=== PATIENT | female | born 1960 | race Caucasian/White ===

== ENCOUNTER 2019-08-04 19:39 | Inpatient (IN) | payer MEDICAID ==
[2019-08-04] MEDS ORDERED: Ondansetron 4 MG/2 ML SDV IVPUSH ONE (20:33)
[2019-08-04] MEDS ORDERED: Sodium Chloride 0.9% 1,000 ML IV SCH (20:45)
--- NOTE | 2019-08-04 20:52 | EDM.PDOC ---
ED HPI GENERAL MEDICAL PROBLEM - General Chief Complaint: Abdominal Pain Stated Complaint: LOWER STOMACH PAIN Time Seen by Provider: 08/04/19 20:17 Source of Information: Reports: Patient, RN Notes Reviewed History Limitations: Reports: No Limitations - History of Present Illness INITIAL COMMENTS - FREE TEXT/NARRATIVE: Patient is a 58-year-old female who presents to the ED for the evaluation of lower abdominal pain. She does state that this is present in both the right and left abdomen, but is worse on the left side. She does state that she has had looser stools than normal for around 4 days, multiple episodes per day. She does having some nausea as well today. She not complaining of any fevers or chills. Patient states she does have a history of IBS, but this was diagnosed in the on her symptoms alone. Patient states that she normally has bowel issues however again the stools have been looser than her normal. She states that the pain she is experiencing is a little bit different from her normal abdomen pain as well. She has been using some heat packs to the area and this is provided little relief, and she does have a prescription for dicyclomine as she did take 1 tablet of this today and it does seem to help dull the pain. She states she feels bloated as well. She states she has only had C-sections for abdominal surgeries, so still retains her appendix. She states that she is having urinary frequency, but no dysuria or urgency. Patient does not have a primary care doctor, and states she does not seek medical care regularly. 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 Therapy Left Lower Abdominal Pain Score (Numeric/FACES): 5 - Related Data Allergies Allergy/AdvReac Type Severity Reaction Status Date / Time erythromycin base Allergy Other Verified 08/04/19 20:12 Home Meds: Home Meds Dicyclomine [Bentyl] 20 mg PO ASDIRECTED 08/04/19 [History] Levothyroxine 20 mcg PO DAILY 08/04/19 [History] hydroCHLOROthiazide [Hydrochlorothiazide] 25 mg PO DAILY 08/04/19 [History] valACYclovir HCl [Valtrex] 500 mg PO ASDIRECTED PRN 08/04/19 [History] Past Medical History Cardiovascular History: Reports: Other (See Below) Other Cardiovascular History: edema Gastrointestinal History: Reports: Irritable Bowel Syndrome [employer]OR [employer] TRANSFORMATION History: Reports: - Past Surgical History Female Surgical History: Reports: Section Social & Family History - Tobacco Use Smoking Status *Q: Never Smoker - Caffeine Use Caffeine Use: Reports: Soda - Recreational Drug Use Recreational Drug Use: No ED ROS GENERAL - Review of Systems Review Of Systems: See Below Constitutional: Denies: Fever, Chills Respiratory: Denies: Shortness of Breath Cardiovascular: Denies: Chest Pain GI/Abdominal: Reports: Abdominal Pain (bilateral lower, worse on left), Nausea. Denies: Black Stool, Bloody Stool, Diarrhea, Vomiting : Reports: Frequency. Denies: Dysuria, Flank Pain, Urgency Musculoskeletal: Denies: Back Pain ED EXAM, GI/ABD - Physical Exam Exam: See Below Exam Limited By: No Limitations General Appearance: Alert, WD/WN, No Apparent Distress Eyes: Bilateral: Normal Appearance Ears: Normal External Exam Throat/Mouth: Normal Inspection, Normal Lips, Normal Teeth, Normal Gums, Normal Oropharynx, Normal Voice, No Airway Compromise Head: Atraumatic, Normocephalic Neck: Normal Inspection Respiratory/Chest: No Respiratory Distress, Lungs Clear, Normal Breath Sounds, No Accessory Muscle Use, Chest Non-Tender Cardiovascular: Normal Peripheral Pulses, Regular Rate, Rhythm, No Murmur GI/Abdominal Exam: Soft, No Distention, No Mass, Tender (generalized, but worse in lower abd. when palpating the Right lower abd, she states that this sends shooting pains throghout her abdomen, she is exquisitely tender on her left lower abd also) Extremities: Normal Inspection, Normal Capillary Refill Neurological: Alert, Oriented, Normal Cognition, No Motor/Sensory Deficits Psychiatric: Normal Affect, Normal Mood Skin Exam: Warm, Dry, Intact, Normal Color, No Rash Course - Orders/Labs/Meds Orders: Active Orders 24 hr Category Date Time Status Abdomen Pelvis w Cont [CT] Stat Exams 08/04/19 20:33 Taken Levofloxacin/Dextrose 5%-Water [Levaquin in D5W 750 MG/ Med 08/04/19 22:46 Active 150 ML] 750 mg Premix Bag 1 bag IV ONETIME Sodium Chloride 0.9% [Normal Saline] 1,000 ml Med 08/04/19 20:45 Active IV ASDIRECTED metroNIDAZOLE/Normal Saline [Flagyl 500 MG in NS 100 ML Med 08/04/19 22:51 Active ] 500 mg Premix Bag 1 bag IV ONETIME Medication Orders Sodium Chloride (Normal Saline) 1,000 mls @ 999 mls/hr IV ASDIRECTED STEF Last Admin: 08/04/19 21:08 Dose: 999 mls/hr Levofloxacin/Dextrose 750 mg/ (Premix) 150 mls @ 100 mls/hr IV ONETIME ONE Stop: 08/05/19 00:15 Metronidazole 500 mg/ Premix 100 mls @ 100 mls/hr IV ONETIME ONE Stop: 08/04/19 23:50 Last Admin: 08/04/19 23:04 Dose: 100 mls/hr Labs: Laboratory Tests 08/04/19 08/04/19 08/04/19 Range/Units 20:19 20:59 20:59 WBC 10.49 H (3.98-10.04) K/mm3 RBC 4.76 (3.98-5.22) M/mm3 Hgb 14.3 (11.2-15.7) gm/dl Hct 43.0 (34.1-44.9) % MCV 90.3 (79.4-94.8) fl MCH 30.0 (25.6-32.2) pg MCHC 33.3 (32.2-35.5) g/dl RDW Std Deviation 44.0 (36.4-46.3) fL Plt Count 318 (182-369) K/mm3 MPV 9.3 L (9.4-12.3) fl Neutrophils % (Manual) 80 H (40-60) % Band Neutrophils % 0 (0-10) % Lymphocytes % (Manual) 9 L (20-40) % Atypical Lymphs % 0 % Monocytes % (Manual) 10 (2-10) % Eosinophils % (Manual) 1 (0.7-5.8) % Basophils % (Manual) 0 L (0.1-1.2) Platelet Estimate Adequate RBC Morph Comment Normal Sodium 140 (136-145) mEq/L Potassium 3.6 (3.5-5.1) mEq/L Chloride 102 (98-107) mEq/L Carbon Dioxide 26 (21-32) mEq/L Anion Gap 15.6 H (5-15) BUN 11 (7-18) mg/dL Creatinine 1.0 (0.55-1.02) mg/dL Est Cr Clr Drug Dosing 51.96 mL/min Estimated GFR (MDRD) 57 (>60) mL/min BUN/Creatinine Ratio 11.0 L (14-18) Glucose 105 (74-106) mg/dL Calcium 9.5 (8.5-10.1) mg/dL Total Bilirubin 0.2 (0.2-1.0) mg/dL AST 15 (15-37) U/L ALT 24 (14-59) U/L Alkaline Phosphatase 92 (46-116) U/L C-Reactive Protein 1.1 H* (<1.0) mg/dL Total Protein 8.3 H (6.4-8.2) g/dl Albumin 4.4 (3.4-5.0) g/dl Globulin 3.9 gm/dL Albumin/Globulin Ratio 1.1 (1-2) Urine Color Yellow (Yellow) Urine Appearance Clear (Clear) Urine pH 5.5 (5.0-8.0) Ur Specific [place] 1.025 (1.005-1.030) Urine Protein Negative (Negative) Urine Glucose (UA) Negative (Negative) Urine Ketones Negative (Negative) Urine Occult Blood Negative (Negative) Urine Nitrite Negative (Negative) Urine Bilirubin Negative (Negative) Urine Urobilinogen 0.2 (0.2-1.0) Ur Leukocyte Esterase Negative (Negative) Urine RBC 0-5 (0-5) /hpf Urine WBC 0-5 (0-5) /hpf Ur Epithelial Cells 0-5 (0-5) /hpf Urine Bacteria Few (FEW) /hpf Urine Mucus Moderate H (FEW) /hpf Meds: Medications Generic Name Dose Route Start Last Admin Trade Name Freq PRN Reason Stop Dose Admin Sodium Chloride 1,000 mls @ 999 mls/hr 08/04/19 20:45 08/04/19 21:08 Normal Saline IV 999 mls/hr ASDIRECTED STEF Administration Levofloxacin/Dextrose 750 mg/ 150 mls @ 100 mls/hr 08/04/19 22:46 Premix IV 08/05/19 00:15 ONETIME ONE Metronidazole 500 mg/ Premix 100 mls @ 100 mls/hr 08/04/19 22:51 08/04/19 23: 04 IV 08/04/19 23:50 100 mls/hr ONETIME ONE Administration Discontinued Medications Generic Name Dose Route Start Last Admin Trade Name Freq PRN Reason Stop Dose Admin Hydromorphone HCl 0.5 mg 08/04/19 22:51 08/04/19 23:02 Dilaudid IVPUSH 08/04/19 22:52 0.5 mg ONETIME ONE Administration Ondansetron HCl 4 mg 08/04/19 20:33 08/04/19 21:08 Zofran IVPUSH 08/04/19 20:34 4 mg ONETIME ONE Administration - Re-Assessments/Exams Free Text/Narrative Re-Assessment/Exam: 08/04/19 20:52 Patient presents to the ED for the evaluation of bilateral lower abdominal pain. Did order IV to be placed with some IV fluids, 4 mg of Zofran, CBC CMP urinalysis and a CRP with an abdominal pelvis CT with oral and IV contrast for further evaluation. Due to the patient's pain and symptoms suspect a flare of her IBS versus diverticulitis at this time. Patient was not requesting anything for pain, she states she drove herself here. She states that if she feels enough pain that she thinks she needs something stronger than dicyclomine , she will find a ride to go home. 08/04/19 23:11 Patient's laboratory evaluation did come back her white blood cell count is mildly elevated with 80% neutrophils and no bands. Metabolically she is okay. CRP is mildly elevated 1.1. CT did demonstrate a short segment of colitis of the distal descending colon, that has an area that appears to be masslike, and radiologist is questioning colon cancer versus the short segment of colitis of the distal descending colon. Due to the patient's increased white count, and pain, will treat as diverticulitis patient has been given some IV antibiotics, some IV pain medications and IV fluids and will be admitted for management at this time. Dr. Yanes is aware, and he will talk to Dr. Mortensen in the morning for admission. Departure - Departure Time of Disposition: 23:13 Disposition: Admitted As Inpatient 68 Condition: Fair Clinical Impression: Diverticulitis large intestine Qualifiers: Diverticulitis bleeding: without bleeding Diverticulitis complication: without perforation or abscess Qualified Code(s): K57.32 - Diverticulitis of large intestine without perforation or abscess without bleeding - Discharge Information *PRESCRIPTION DRUG MONITORING PROGRAM REVIEWED*: No *COPY OF PRESCRIPTION DRUG MONITORING REPORT IN PATIENT TERRI: No Sepsis Event Note - Evaluation Sepsis Screening Result: No Definite Risk - Focused Exam Date Exam was Performed: 08/04/19 Time Exam was Performed: 23:33 - My Orders Last 24 Hours: My Active Orders 08/04/19 20:33 Abdomen Pelvis w Cont [CT] Stat 08/04/19 20:45 Sodium Chloride 0.9% [Normal Saline] 1,000 ml IV ASDIRECTED 08/04/19 22:46 Levofloxacin/Dextrose 5%-Water [Levaquin in D5W 750 MG/150 ML] 750 mg Premix Bag 1 bag IV ONETIME 08/04/19 22:51 metroNIDAZOLE/Normal Saline [Flagyl 500 MG in NS 100 ML] 500 mg Premix Bag 1 bag IV ONETIME - Assessment/Plan Last 24 Hours: My Active Orders 08/04/19 20:33 Abdomen Pelvis w Cont [CT] Stat 08/04/19 20:45 Sodium Chloride 0.9% [Normal Saline] 1,000 ml IV ASDIRECTED 08/04/19 22:46 Levofloxacin/Dextrose 5%-Water [Levaquin in D5W 750 MG/150 ML] 750 mg Premix Bag 1 bag IV ONETIME 08/04/19 22:51 metroNIDAZOLE/Normal Saline [Flagyl 500 MG in NS 100 ML] 500 mg Premix Bag 1 bag IV ONETIME
[2019-08-04] MEDS ORDERED: Levofloxacin/Dextrose 5%-Water 750 MG in Premix Bag 1 BAG IV ONE (22:46)
[2019-08-04] MEDS ORDERED: metroNIDAZOLE/Normal Saline 500 MG in Premix Bag 1 BAG IV ONE (22:51)
[2019-08-04] MEDS ORDERED: HYDROmorphone 0.5 MG/0.5 ML Syringe IVPUSH ONE (22:51)
[2019-08-05] MEDS ORDERED: Ondansetron 4 MG/2 ML SDV IVPUSH PRN (01:16)
[2019-08-05] MEDS ORDERED: HYDROmorphone 0.5 MG/0.5 ML Syringe IVPUSH PRN (01:17)
[2019-08-05] MEDS: Dextrose 5%-0.9% NaCl with KCl 1,000 ML IV SCH ×2 (01:39→19:55)
[2019-08-05] MEDS ORDERED: metroNIDAZOLE/Normal Saline 500 MG in Premix Bag 1 BAG IV SCH (07:00)
--- NOTE | 2019-08-05 07:13 | PCM.HP.2 ---
H&P History of Present Illness - General Date of Service: 08/05/19 Admit Problem/Dx: Admission Diagnosis/Problem Admission Diagnosis/Problem Diverticulitis Source of Information: Patient, Old Records, Provider, RN, RN Notes Reviewed History Limitations: Reports: No Limitations - History of Present Illness Initial Comments - Free Text/Narative: Fabby Samson is a 58 yo who presented to ED on 08/04/2019 with lower abdominal pain. She reports that is worse on the left side but is bilateral. Reports loose stools for the past 4 days with multiple episodes per day. Reports nausea as well but denies fever chills. She reports she has had an IBS diagnosis since the but this was based on symptoms alone. She reports a history of ongoing bowel issues with chronic abdominal pain. She does report the pain now is different than her usual pain. She has been attempting to relieve symptoms with heat packs, however this does not work very well. She reports she does have a prescription for good dyclonine and she did take 1 tablet with mild relief. Reports she feels bloated as well. Denies any urinary symptoms. States she does not have a primary care doctor and she does not seek medical care regularly. In the ED labs were obtained showing mild leukocytosis of 10.47. Hemoglobin is 14.3. Platelets are 318,000. Neutrophils are elevated at 80%. There is no bandemia. Electrolytes look good CRP is slightly elevated at 1.1. Protein is high at 8.3. UA is negative with only moderate mucus noted. She is given a 1 L fluid bolus and started on 750 mg Levaquin and 500 mg metronidazole. She is also given Dilaudid for pain and Zofran for nausea. Abdominal CT is obtained and interpreted by Miri as short segment colitis of distal descending colon versus colon cancer. She carries a history of pedal edema, irritable bowel syndrome, Hypothyroidism. Never smoker. She subsequently admitted to the medical floor for management of her diverticulitis or possible mass. Left Lower Abdominal Pain Score (Numeric/FACES): 5 - Related Data Allergies/Adverse Reactions: Allergies Allergy/AdvReac Type Severity Reaction Status Date / Time erythromycin base Allergy Other Verified 08/04/19 20:12 Home Medications: Home Meds Dicyclomine [Bentyl] 20 mg PO ASDIRECTED 08/04/19 [History] hydroCHLOROthiazide [Hydrochlorothiazide] 25 mg PO DAILY 08/04/19 [History] ALPRAZolam [Xanax] 0.25 mg PO BEDTIME 08/05/19 [History] Levothyroxine Sodium [Synthroid] 200 mcg PO DAILY 08/05/19 [History] Past Medical History Cardiovascular History: Reports: Other (See Below) Other Cardiovascular History: edema Gastrointestinal History: Reports: Irritable Bowel Syndrome Genitourinary History: Reports: None 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: Reports: Endocrine/Metabolic History: Reports: Hypothyroidism - Infectious Disease History Infectious Disease History: Reports: Chicken Pox, Measles - Past Surgical History GI Surgical History: Reports: None Female Surgical History: Reports: Section Endocrine Surgical History: Reports: Thyroidectomy Social & Family History - Family History Family Medical History: Noncontributory - Tobacco Use Smoking Status *Q: Former Smoker Packs/Tins Daily: 20 Used Tobacco, but Quit: Yes Month/Year Tobacco Last Used: 2003 Second Hand Smoke Exposure: No - Caffeine Use Caffeine Use: Reports: Coffee Other Caffeine Use: 3-5 cups per day - Recreational Drug Use Recreational Drug Use: No H&P Review of Systems - Review of Systems: Review Of Systems: See Below General: Reports: No Symptoms. Denies: Fever, Chills, Weakness HEENT: Reports: No Symptoms. Denies: Headaches, Sore Throat Pulmonary: Reports: No Symptoms. Denies: Shortness of Breath, Wheezing, Pleuritic Chest Pain, Cough, Sputum Cardiovascular: Reports: Edema (history of - controlled by HCTZ). Denies: Chest Pain, Palpitations, Dyspnea on Exertion, Lightheadedness Gastrointestinal: Reports: Abdominal Pain (LLQ>RLQ), Diarrhea (Looser stools than normal - worse over past 3 months ), Nausea. Denies: Constipation, Vomiting Genitourinary: Reports: Frequency. Denies: Pain Musculoskeletal: Reports: No Symptoms Skin: Reports: No Symptoms Psychiatric: Reports: Anxiety. Denies: Confusion Neurological: Reports: No Symptoms Hematologic/Lymphatic: Reports: No Symptoms Immunologic: Reports: No Symptoms Exam - Exam Exam: See Below - Vital Signs Vital Signs: Last Vital Signs Temp 97.9 F 08/05/19 03:30 Pulse 70 08/05/19 03:30 Resp 16 08/05/19 03:30 BP 122/94 H 08/05/19 03:30 Pulse Ox 97 08/05/19 03:30 Weight: 188 lb 3.2 oz - Exam Quality Assessment: DVT Prophylaxis General: Alert, Oriented, Cooperative. No: Mild Distress HEENT: Conjunctiva Clear, EACs Clear, EOMI, Hearing Intact, Mucosa Moist & [place] , Nares Patent, Posterior Pharynx Clear, PERRLA Neck: Supple, Trachea Midline Lungs: Clear to Auscultation, Normal Respiratory Effort Cardiovascular: Regular Rate, Regular Rhythm GI/Abdominal Exam: Normal Bowel Sounds, Soft, No Distention, Tender ( generalized but worse in lower quadrants ) (Female) Exam: Deferred Rectal (Female) Exam: Deferred Back Exam: Normal Inspection, Full Range of Motion Extremities: Normal Inspection, Normal Range of Motion, Non-Tender, No Pedal Edema, Normal Capillary Refill Peripheral Pulses: 2+: Dorsalis Pedis (L), Dorsalis Pedis (R), 3+: Radial (L), Radial (R) Skin: Warm, Dry, Intact Neurological: Cranial Nerves Intact (Grossly ) Neuro Extensive - Mental Status: Alert, Oriented x3 Psychiatric: Alert, Anxious - Patient Data Lab Results Last 24 hrs: Laboratory Results - last 24 hr 08/04/19 08/04/19 08/04/19 Range/Units 20:19 20:59 20:59 WBC 10.49 H (3.98-10.04) K/mm3 RBC 4.76 (3.98-5.22) M/mm3 Hgb 14.3 (11.2-15.7) gm/dl Hct 43.0 (34.1-44.9) % MCV 90.3 (79.4-94.8) fl MCH 30.0 (25.6-32.2) pg MCHC 33.3 (32.2-35.5) g/dl RDW Std Deviation 44.0 (36.4-46.3) fL Plt Count 318 (182-369) K/mm3 MPV 9.3 L (9.4-12.3) fl Neutrophils % (Manual) 80 H (40-60) % Band Neutrophils % 0 (0-10) % Lymphocytes % (Manual) 9 L (20-40) % Atypical Lymphs % 0 % Monocytes % (Manual) 10 (2-10) % Eosinophils % (Manual) 1 (0.7-5.8) % Basophils % (Manual) 0 L (0.1-1.2) Platelet Estimate Adequate RBC Morph Comment Normal Sodium 140 (136-145) mEq/L Potassium 3.6 (3.5-5.1) mEq/L Chloride 102 (98-107) mEq/L Carbon Dioxide 26 (21-32) mEq/L Anion Gap 15.6 H (5-15) BUN 11 (7-18) mg/dL Creatinine 1.0 (0.55-1.02) mg/dL Est Cr Clr Drug Dosing 51.96 mL/min Estimated GFR (MDRD) 57 (>60) mL/min BUN/Creatinine Ratio 11.0 L (14-18) Glucose 105 (74-106) mg/dL Calcium 9.5 (8.5-10.1) mg/dL Total Bilirubin 0.2 (0.2-1.0) mg/dL AST 15 (15-37) U/L ALT 24 (14-59) U/L Alkaline Phosphatase 92 (46-116) U/L C-Reactive Protein 1.1 H* (<1.0) mg/dL Total Protein 8.3 H (6.4-8.2) g/dl Albumin 4.4 (3.4-5.0) g/dl Globulin 3.9 gm/dL Albumin/Globulin Ratio 1.1 (1-2) Urine Color Yellow (Yellow) Urine Appearance Clear (Clear) Urine pH 5.5 (5.0-8.0) Ur Specific [place] 1.025 (1.005-1.030) Urine Protein Negative (Negative) Urine Glucose (UA) Negative (Negative) Urine Ketones Negative (Negative) Urine Occult Blood Negative (Negative) Urine Nitrite Negative (Negative) Urine Bilirubin Negative (Negative) Urine Urobilinogen 0.2 (0.2-1.0) Ur Leukocyte Esterase Negative (Negative) Urine RBC 0-5 (0-5) /hpf Urine WBC 0-5 (0-5) /hpf Ur Epithelial Cells 0-5 (0-5) /hpf Urine Bacteria Few (FEW) /hpf Urine Mucus Moderate H (FEW) /hpf Result Diagrams: 08/04/19 20:59 08/04/19 20:59 Sepsis Event Note - Evaluation Sepsis Screening Result: No Definite Risk - Focused Exam Vital Signs: Vital Signs Temp Pulse Resp BP Pulse Ox 08/05/19 03:30 97.9 F 70 16 122/94 H 97 08/05/19 00:20 97.7 F 71 18 130/81 98 Date Exam was Performed: 08/05/19 Time Exam was Performed: 11:02 - Problem List (1) History of IBS SNOMED Code(s): 05202252444291 ICD Code: Z87.19 - PERSONAL HISTORY OF OTHER DISEASES OF THE DIGESTIVE SYSTEM Status: Acute Priority: High Current Visit: Yes (2) Chronic edema SNOMED Code(s): 260007178, 11711209, 227034355 ICD Code: R60.9 - EDEMA, UNSPECIFIED Status: Chronic Priority: Low Current Visit: Yes (3) Diverticulitis large intestine SNOMED Code(s): 4275405 ICD Code: K57.32 - DVTRCLI OF LG INT W/O PERFORATION OR ABSCESS W/O BLEEDING Status: Acute Priority: High Current Visit: Yes Qualifiers: Diverticulitis bleeding: without bleeding Diverticulitis complication: without perforation or abscess Qualified Code(s): K57.32 - Diverticulitis of large intestine without perforation or abscess without bleeding (4) Abnormal abdominal CT scan SNOMED Code(s): 52880433420003268 ICD Code: R93.5 - ABN FINDINGS ON DX IMAGING OF ABD REGIONS, INC RETROPERITON Status: Acute Priority: High Current Visit: Yes (5) Anxiety SNOMED Code(s): 45501920 ICD Code: F41.9 - ANXIETY DISORDER, UNSPECIFIED Status: Acute Priority: High Current Visit: Yes (6) Hypothyroidism SNOMED Code(s): 73205855 ICD Code: E03.9 - HYPOTHYROIDISM, UNSPECIFIED Status: Chronic Priority: Low Current Visit: No Qualifiers: Hypothyroidism type: unspecified Qualified Code(s): E03.9 - Hypothyroidism , unspecified Problem List Initiated/Reviewed/Updated: Yes Orders Last 24hrs: Active Orders 24 hr Category Date Time Status Admission Status [Patient Status] [ADT] Routine ADT 08/04/19 23:10 Active Activity as Tolerated [RC] BID Care 08/05/19 01:13 Active Antiembolic Devices [RC] PER UNIT ROUTINE Care 08/05/19 07:11 Ordered Height and Weight [RC] DAILY Care 08/05/19 07:10 Ordered Intake and Output [RC] QSHIFT Care 08/05/19 07:10 Ordered Notify Provider Consults [RC] ASDIRECTED Care 08/05/19 01:32 Inactive Notify Provider Consults [RC] ASDIRECTED Care 08/05/19 01:34 Active Oxygen Therapy [RC] PRN Care 08/05/19 07:10 Ordered Pulse Oximetry [RC] PRN Care 08/05/19 07:10 Ordered Up With Assistance [RC] ASDIRECTED Care 08/05/19 07:10 Ordered VTE/DVT Education [RC] PER UNIT ROUTINE Care 08/05/19 07:10 Ordered Vital Signs [RC] Q4H Care 08/05/19 07:10 Ordered Consult to Physician [CONS] Routine Cons 08/05/19 01:33 Active Consult to Spiritual Care [CONS] Routine Cons 08/05/19 07:10 Ordered NPO Now [Nothing per Oral Now Diet] [DIET] Diet 08/05/19 Lunch Ordered Abdomen Pelvis w Cont [CT] Stat Exams 08/04/19 20:33 Taken CBC WITH AUTO DIFF [HEME] AM Lab 08/06/19 05:11 Ordered CBC WITH AUTO DIFF [HEME] AM Lab 08/07/19 05:11 Ordered CBC WITH AUTO DIFF [HEME] AM Lab 08/08/19 05:11 Ordered CBC WITH AUTO DIFF [HEME] AM Lab 08/09/19 05:11 Ordered CMP [COMPREHENSIVE METABOLIC PN,CMP] [CHEM] AM Lab 08/06/19 05:11 Ordered CMP [COMPREHENSIVE METABOLIC PN,CMP] [CHEM] AM Lab 08/07/19 05:11 Ordered CMP [COMPREHENSIVE METABOLIC PN,CMP] [CHEM] AM Lab 08/08/19 05:11 Ordered CMP [COMPREHENSIVE METABOLIC PN,CMP] [CHEM] AM Lab 08/09/19 05:11 Ordered CRP [C-REACTIVE PROTEIN] [CHEM] AM Lab 08/06/19 05:11 Ordered CRP [C-REACTIVE PROTEIN] [CHEM] AM Lab 08/07/19 05:11 Ordered CRP [C-REACTIVE PROTEIN] [CHEM] AM Lab 08/08/19 05:11 Ordered CRP [C-REACTIVE PROTEIN] [CHEM] AM Lab 08/09/19 05:11 Ordered MAGNESIUM [CHEM] AM Lab 08/06/19 05:11 Ordered MAGNESIUM [CHEM] AM Lab 08/07/19 05:11 Ordered MAGNESIUM [CHEM] AM Lab 08/08/19 05:11 Ordered MAGNESIUM [CHEM] AM Lab 08/09/19 05:11 Ordered ALPRAZolam [Xanax] Med 08/05/19 21:00 Ordered 0.25 mg PO BEDTIME Dextrose 5%-0.9% NaCl with KCl [D5 NS with 20 mEq KCl] Med 08/05/19 01:30 Active 1,000 ml IV ASDIRECTED HYDROmorphone [Dilaudid] Med 08/05/19 01:17 Active 0.5 mg IVPUSH Q4H PRN Levofloxacin/Dextrose 5%-Water [Levaquin in D5W 750 MG/ Med 08/06/19 00:00 Active 150 ML] 750 mg Premix Bag 1 bag IV Q24H Levothyroxine Med 08/05/19 09:00 Ordered 200 mcg PO DAILY Ondansetron [Zofran] Med 08/05/19 01:16 Active 4 mg IVPUSH Q8H PRN metroNIDAZOLE/Normal Saline [Flagyl 500 MG in NS 100 ML Med 08/05/19 07:00 Active ] 500 mg Premix Bag 1 bag IV Q8H Sequential Compression Device [OM.PC] Per Unit Routine Oth 08/05/19 07:11 Ordered Code Status [Resuscitation Status] Routine Resus Stat 08/05/19 01:12 Ordered Medication Orders Alprazolam (Xanax) 0.25 mg PO BEDTIME STEF Hydromorphone HCl (Dilaudid) 0.5 mg IVPUSH Q4H PRN PRN Reason: Pain Last Admin: 08/05/19 03:38 Dose: 0.5 mg Potassium Chloride/Dextrose/Sod Cl (D5 Ns With 20 Meq Kcl) 1,000 mls @ 75 mls/ hr IV ASDIRECTED STEF Last Admin: 08/05/19 01:39 Dose: 75 mls/hr Levofloxacin/Dextrose 750 mg/ (Premix) 150 mls @ 100 mls/hr IV Q24H STEF Metronidazole 500 mg/ Premix 100 mls @ 100 mls/hr IV Q8H STEF Levothyroxine Sodium (Levothyroxine) 200 mcg PO DAILY STEF Ondansetron HCl (Zofran) 4 mg IVPUSH Q8H PRN PRN Reason: Nausea/Vomiting Last Admin: 08/05/19 03:37 Dose: 4 mg Assessment/Plan Comment:: I/P: Diverticulitis with possible abdominal mass -Reports acute LLQ>RLQ abdominal pain -History of chronic abdominal pain, however worse for past few days -Loose stools for fast 3 months -Diagnosed with IBS in - on dicyclomine -Reports accompanying severe nausea -History of , no other abdominal surgeries -No prior colonoscopy -Tried heat pack with minimal relief at home -Abdominal CT in ED: Short segment colitis of distal descending colon versus colonic cancer. -WBC 10.49 -CRP 1.1 -Started on levaquin and flagyl in ED - continue -Pain medications as ordered -Antiemetics as ordered -Consult general surgery - Dr. Aviles -Advance diet as tolerated -Hold home Bentyl for now -Will require outpatient colonoscopy after discharge Anxiety -Acute on chronic -Home xanax -Consider PRN Ativan Chronic: IBS Chronic edema Anxiety hypothyroidism Plan: Admit to medical floor Other orders as indicated above Home medications as ordered AM labs as ordered Spiritual care consult DVT prophylaxis: SCDs Code status: Full code; PCP: None - would like to establish with Zuleima Ramsay NP at [facility]. - Mortality Measure Prognosis:: Good
--- NOTE | 2019-08-05 08:01 | CT ---
CT abdomen and pelvis Technique: Multiple axial sections were obtained from above the dome of the diaphragm inferiorly through the pubic symphysis. Intravenous and oral contrast has been given. Delayed images were also obtained through the abdomen and pelvis. Comparison: No prior abdominal imaging is available. Findings: Bowel wall thickening is seen asymmetrically at the junction of the sigmoid and descending colon. Slight surrounding inflammatory type change is seen. There is a diverticuli being seen in this area and findings are most likely due to diverticulitis. Other findings: Visualized lung bases show nothing acute. Lesion noted within the right lobe of the liver measuring 2.4 cm which shows clumping of contrast and also shows filling in on delayed images. This is felt compatible with a hemangioma. Focal amount of fat is seen next to the ligamentum teres fissure. No additional liver abnormality is appreciated. Spleen appears within normal limits. Adrenal glands show no nodule. Pancreas is within normal limits. Kidneys show symmetric contrast enhancement without hydronephrosis or mass. Aorta shows no aneurysm. No retroperitoneal adenopathy or mesenteric abnormalities are seen. Appendix is seen which is normal. No pelvic mass or adenopathy is seen. Minimal free fluid is seen within the pelvis. Delayed images show contrast excretion from both kidneys. Contrast is noted within both distal ureters as well as within the bladder. Impression: 1. Focal asymmetric bowel wall thickening at the junction of the descending and sigmoid colon. Mild surrounding inflammatory change is noted. Findings most likely represent a diverticulitis. Recommend endoscopy after the patient's condition improves to exclude colon cancer as this remains within the differential. 2. Hemangioma within the liver. 3. No other acute finding is seen. Diagnostic code #9 This report was dictated in [place] Standard Time I agree with preliminary report from [facility], finalized on 08/04/19, 11:57 PM Central Time
[2019-08-05] MEDS ORDERED: Prochlorperazine 10 MG/2 ML SDV IVPUSH ONE (10:00)
--- NOTE | 2019-08-05 10:34 | PCM.CONS ---
H&P History of Present Illness - General Date of Service: 08/05/19 Admit Problem/Dx: Admission Diagnosis/Problem Admission Diagnosis/Problem Diverticulitis Source of Information: Patient History Limitations: Reports: No Limitations - History of Present Illness Initial Comments - Free Text/Narative: Ms. Samson is a 58 yo woman who presents with abdominal pain. The pain is focused in the left lower quadrant, and has been noticeable now for a few months , getting progressively worse. She has associated diarrhea. CT scan shows focal inflammatory change of the sigmoid colon with evidence of diverticular disease. She denies recent unintentional weight loss. She has never had a colonoscopy. She has no prior history of diverticulitis. She has no personal history or family history significant for cancer. She denies melena and hematochezia. Onset of Symptoms: Reports: Gradual Duration of Symptoms: Reports: Week(s):, Getting Worse Location: Reports: Abdomen Severity: Severe Associated Symptoms: Reports: Nausea/Vomiting Left Lower Abdominal Pain Score (Numeric/FACES): 5 - Related Data Allergies/Adverse Reactions: Allergies Allergy/AdvReac Type Severity Reaction Status Date / Time erythromycin base Allergy Other Verified 08/04/19 20:12 Home Medications: Home Meds Dicyclomine [Bentyl] 20 mg PO ASDIRECTED 08/04/19 [History] hydroCHLOROthiazide [Hydrochlorothiazide] 25 mg PO DAILY 08/04/19 [History] ALPRAZolam [Xanax] 0.25 mg PO BEDTIME 08/05/19 [History] Levothyroxine Sodium [Synthroid] 200 mcg PO DAILY 08/05/19 [History] Past Medical History Cardiovascular History: Reports: Other (See Below) Other Cardiovascular History: edema Gastrointestinal History: Reports: Irritable Bowel Syndrome Genitourinary History: Reports: None 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: Endocrine/Metabolic History: Reports: Hypothyroidism - Infectious Disease History Infectious Disease History: Reports: Chicken Pox, Measles - Past Surgical History GI Surgical History: Reports: None Female Surgical History: Reports: Section Endocrine Surgical History: Reports: Thyroidectomy Social & Family History - Family History Family Medical History: Noncontributory - Tobacco Use Smoking Status *Q: Former Smoker Packs/Tins Daily: 20 Used Tobacco, but Quit: Yes Month/Year Tobacco Last Used: 2003 Second Hand Smoke Exposure: No - Caffeine Use Caffeine Use: Reports: Coffee Other Caffeine Use: 3-5 cups per day - Recreational Drug Use Recreational Drug Use: No H&P Review of Systems - Review of Systems: Review Of Systems: See Below General: Reports: No Symptoms Cardiovascular: Reports: No Symptoms Gastrointestinal: Reports: Abdominal Pain, Diarrhea, Nausea Skin: Reports: No Symptoms Psychiatric: Reports: No Symptoms Neurological: Reports: No Symptoms Hematologic/Lymphatic: Reports: No Symptoms Immunologic: Reports: No Symptoms Exam - Exam Exam: See Below - Vital Signs Vital Signs: Last Vital Signs Temp 36.6 C 08/05/19 07:53 Pulse 87 08/05/19 07:53 Resp 20 08/05/19 07:53 BP 122/76 08/05/19 07:53 Pulse Ox 98 08/05/19 07:53 Weight: 85.366 kg - Exam General: Alert, Oriented, Cooperative HEENT: Conjunctiva Clear Neck: Supple, Trachea Midline Lungs: Normal Respiratory Effort Cardiovascular: Regular Rate GI/Abdominal Exam: Soft, No Distention, No Mass, Tender (focal LLQ tenderness without palpable mass) (Female) Exam: Deferred Rectal (Female) Exam: Deferred Extremities: Normal Inspection Skin: Warm, Dry Neuro Extensive - Mental Status: Alert, Oriented x3 Psychiatric: Anxious - Patient Data Lab Results Last 24 hrs: Laboratory Results - last 24 hr 08/04/19 08/04/19 08/04/19 Range/Units 20:19 20:59 20:59 WBC 10.49 H (3.98-10.04) K/mm3 RBC 4.76 (3.98-5.22) M/mm3 Hgb 14.3 (11.2-15.7) gm/dl Hct 43.0 (34.1-44.9) % MCV 90.3 (79.4-94.8) fl MCH 30.0 (25.6-32.2) pg MCHC 33.3 (32.2-35.5) g/dl RDW Std Deviation 44.0 (36.4-46.3) fL Plt Count 318 (182-369) K/mm3 MPV 9.3 L (9.4-12.3) fl Neutrophils % (Manual) 80 H (40-60) % Band Neutrophils % 0 (0-10) % Lymphocytes % (Manual) 9 L (20-40) % Atypical Lymphs % 0 % Monocytes % (Manual) 10 (2-10) % Eosinophils % (Manual) 1 (0.7-5.8) % Basophils % (Manual) 0 L (0.1-1.2) Platelet Estimate Adequate RBC Morph Comment Normal Sodium 140 (136-145) mEq/L Potassium 3.6 (3.5-5.1) mEq/L Chloride 102 (98-107) mEq/L Carbon Dioxide 26 (21-32) mEq/L Anion Gap 15.6 H (5-15) BUN 11 (7-18) mg/dL Creatinine 1.0 (0.55-1.02) mg/dL Est Cr Clr Drug Dosing 51.96 mL/min Estimated GFR (MDRD) 57 (>60) mL/min BUN/Creatinine Ratio 11.0 L (14-18) Glucose 105 (74-106) mg/dL Calcium 9.5 (8.5-10.1) mg/dL Total Bilirubin 0.2 (0.2-1.0) mg/dL AST 15 (15-37) U/L ALT 24 (14-59) U/L Alkaline Phosphatase 92 (46-116) U/L C-Reactive Protein 1.1 H* (<1.0) mg/dL Total Protein 8.3 H (6.4-8.2) g/dl Albumin 4.4 (3.4-5.0) g/dl Globulin 3.9 gm/dL Albumin/Globulin Ratio 1.1 (1-2) Urine Color Yellow (Yellow) Urine Appearance Clear (Clear) Urine pH 5.5 (5.0-8.0) Ur Specific [place] 1.025 (1.005-1.030) Urine Protein Negative (Negative) Urine Glucose (UA) Negative (Negative) Urine Ketones Negative (Negative) Urine Occult Blood Negative (Negative) Urine Nitrite Negative (Negative) Urine Bilirubin Negative (Negative) Urine Urobilinogen 0.2 (0.2-1.0) Ur Leukocyte Esterase Negative (Negative) Urine RBC 0-5 (0-5) /hpf Urine WBC 0-5 (0-5) /hpf Ur Epithelial Cells 0-5 (0-5) /hpf Urine Bacteria Few (FEW) /hpf Urine Mucus Moderate H (FEW) /hpf Result Diagrams: 08/04/19 20:59 08/04/19 20:59 Sepsis Event Note - Evaluation Sepsis Screening Result: No Definite Risk - Focused Exam Vital Signs: Vital Signs Temp Pulse Resp BP Pulse Ox 08/05/19 07:53 36.6 C 87 20 122/76 98 08/05/19 03:30 36.6 C 70 16 122/94 H 97 08/05/19 00:20 36.5 C 71 18 130/81 98 Date Exam was Performed: 08/05/19 Time Exam was Performed: 10:29 Consult PN Assessment/Plan Problem List Initiated/Reviewed/Updated: Yes Plan: Ms. Samson likely presents with an initial episode of uncomplicated diverticulitis, though colon cancer is not ruled out. Agree with current antibiotic treatment. Recommend advancing diet as tolerated. Patient may be fit for discharge on oral antibiotics as early as tomorrow if she continues to improve. I discussed the need for diagnostic colonoscopy after this episode of acute inflammation resolves, in about 4 weeks. Requesting Provider: Balbina Date Consult Requested: 08/05/19 Reason for Consult: diverticulitis vs colorectal cancer Patient History Reviewed: Yes Admission H&P Reviewed: Yes Consult Result/Summary:: Treat medically as uncomplicated diverticulitis, with plan for diagnostic colonoscopy a few weeks after completing antibiotic treatment. Notified Requestor: Yes Time Spent (in minutes): 30
[2019-08-05] MEDS: metroNIDAZOLE/Normal Saline 500 MG in Premix Bag 1 BAG IV SCH ×2 (10:55→18:42)
[2019-08-05] MEDS: Hydrochlorothiazide 25 MG Tab PO SCH (10:59)
[2019-08-05] MEDS ORDERED: Prochlorperazine 10 MG/2 ML SDV IVPUSH PRN (12:00)
[2019-08-05] MEDS ORDERED: LORazepam 0.5 MG Tab PO PRN (12:40)
[2019-08-05] MEDS: LORazepam 0.5 MG Tab PO PRN (18:06)
[2019-08-05] MEDS ORDERED: diphenhydrAMINE 50 MG/ML SDV IVPUSH PRN (19:48)
[2019-08-05] MEDS: ALPRAZolam 0.25 MG Tab PO SCH ×2 (19:53→20:48)
[2019-08-06] MEDS ORDERED: Levofloxacin/Dextrose 5%-Water 750 MG in Premix Bag 1 BAG IV SCH ×2
[2019-08-06] MEDS: metroNIDAZOLE/Normal Saline 500 MG in Premix Bag 1 BAG IV SCH ×2 (03:14→12:21)
[2019-08-06] MEDS: LORazepam 0.5 MG Tab PO PRN (08:14)
[2019-08-06] MEDS: Hydrochlorothiazide 25 MG Tab PO SCH (08:14)
--- NOTE | 2019-08-06 11:24 | PCM.DCSUM1 ---
Discharge Summary - Hospital Course HPI Initial Comments: Fabby Samson is a 58 yo who presented to ED on 08/04/2019 with lower abdominal pain. She reports that is worse on the left side but is bilateral. Reports loose stools for the past 4 days with multiple episodes per day. Reports nausea as well but denies fever chills. She reports she has had an IBS diagnosis since the 1980s but this was based on symptoms alone. She reports a history of ongoing bowel issues with chronic abdominal pain. She does report the pain now is different than her usual pain. She has been attempting to relieve symptoms with heat packs, however this does not work very well. She reports she does have a prescription for good dyclonine and she did take 1 tablet with mild relief. Reports she feels bloated as well. Denies any urinary symptoms. States she does not have a primary care doctor and she does not seek medical care regularly. In the ED labs were obtained showing mild leukocytosis of 10.47. Hemoglobin is 14.3. Platelets are 318,000. Neutrophils are elevated at 80%. There is no bandemia. Electrolytes look good CRP is slightly elevated at 1.1. Protein is high at 8.3. UA is negative with only moderate mucus noted. She is given a 1 L fluid bolus and started on 750 mg Levaquin and 500 mg metronidazole. She is also given Dilaudid for pain and Zofran for nausea. Abdominal CT is obtained and interpreted by [facility] as short segment colitis of distal descending colon versus colon cancer. She carries a history of pedal edema, irritable bowel syndrome, Hypothyroidism. Never smoker. She subsequently admitted to the medical floor for management of her diverticulitis or possible mass. Diagnosis: Stroke: No - Discharge Data Discharge Date: 08/06/19 (Admit date: 08/05/19) Discharge Disposition: Home, Self-Care 01 Condition: Good - Referral to Home Health Primary Care Physician: SURAJ Rolle - Discharge Diagnosis/Problem(s) (1) History of IBS SNOMED Code(s): 35563933572642 ICD Code: Z87.19 - PERSONAL HISTORY OF OTHER DISEASES OF THE DIGESTIVE SYSTEM Status: Acute Priority: High Current Visit: Yes (2) Chronic edema SNOMED Code(s): 577073781, 87479005, 304220989 ICD Code: R60.9 - EDEMA, UNSPECIFIED Status: Chronic Priority: Low Current Visit: Yes (3) Diverticulitis large intestine SNOMED Code(s): 0221330 ICD Code: K57.32 - DVTRCLI OF LG INT W/O PERFORATION OR ABSCESS W/O BLEEDING Status: Acute Priority: High Current Visit: Yes Qualifiers: Diverticulitis bleeding: without bleeding Diverticulitis complication: without perforation or abscess Qualified Code(s): K57.32 - Diverticulitis of large intestine without perforation or abscess without bleeding (4) Abnormal abdominal CT scan SNOMED Code(s): 62821750435513665 ICD Code: R93.5 - ABN FINDINGS ON DX IMAGING OF ABD REGIONS, INC RETROPERITON Status: Acute Priority: High Current Visit: Yes (5) Anxiety SNOMED Code(s): 67896464 ICD Code: F41.9 - ANXIETY DISORDER, UNSPECIFIED Status: Acute Priority: High Current Visit: Yes (6) Hypothyroidism SNOMED Code(s): 21290644 ICD Code: E03.9 - HYPOTHYROIDISM, UNSPECIFIED Status: Chronic Priority: Low Current Visit: No Qualifiers: Hypothyroidism type: unspecified Qualified Code(s): E03.9 - Hypothyroidism , unspecified - Patient Summary/Data Consults: Consultations 08/05/19 01:33 Consult to Physician [CONS] Routine 08/05/19 07:10 Consult to Spiritual Care [CONS] Routine Labs Pending at D/C: None Recommended Follow-up Testing/Procedures: Establish with PCP within 5-7 days of discharge, sooner if needed. Follow-up with Dr. Aviles within 4 weeks for colonoscopy. Hospital Course: Fabby was admitted to the hospital floor due to diverticulitis and a questionable colonic mass. She was started on Levaquin and every 8hr Flagyl in the ED, which was continued. She was given IV fluids. She did report generalized abdominal pain but stated that her left lower quadrant was the most painful followed by her right lower quadrant. She does carry a history of irritable bowel syndrome which she states was diagnosed in the 1980s based on symptoms and no further testing. She does report poor medical follow-up and has not seen a provider in quite some time. She has never had a colonoscopy, mammography, or any of her recommended preventative care services. She reports she has not had a Pap Smear since her now 16-year-old daughter was born. Dr. Aviles, general surgeon, was consulted and did see the patient. He agreed with antibiotic plan and did recommend the patient be discharged once appropriate with follow-up for outpatient colonoscopy in approximately 4 weeks. With treatment her pain did improve. She was on a clear liquid diet this was advanced to a full diet and she was able to tolerate food. She never did have any fevers. Leukocytosis resolved. CRP was minimal. She did decide that she would like to establish care at our clinic and had no preference on who she sees. She was advised to follow-up with primary care within 5 to 7 days of discharge, sooner if needed. She was placed on 5 more days of every 24 hour Levaquin 750 mg and every 8 hour metronidazole 500 mg. Home medications were otherwise continued. She was instructed to take Tylenol as needed for pain. She was advised to return the emergency room or contact her primary care provider should she have worsening abdominal pain, fever, intractable nausea or vomiting, or worsening diarrhea. Was warned that she may continue to have mild abdominal pain for some time, to advance her diet slowly, and to go backwards with her diet should she note any symptoms. - Patient Instructions Diet: Usual Diet as Tolerated Activity: As Tolerated Showering/Bathing: May Shower Notify Provider of: Fever, Increased Pain, Nausea and/or Vomiting Other/Special Instructions: Establish with a PCP within 5-7 days of discharge. Follow-up with Dr. Aviles, General surgeon within around 4 weeks for colonoscopy. Take all of your antibiotic as prescribed, even if you feel 100% better. Resume home medications as directed. You will likely continue to have mild abdominal pain for sometime. Should you experience severe abdominal pain, Worsening abdominal pain that doesn't improve, vomiting that doesnt resolve, or prolonged or worsening diarrhea, fever, etc., return to the emergency department. Take tylenol as needed for pain. You were given a note for work. You may return to work on 08/10/19 with no restrictions. - Discharge Plan *PRESCRIPTION DRUG MONITORING PROGRAM REVIEWED*: No *COPY OF PRESCRIPTION DRUG MONITORING REPORT IN PATIENT TERRI: No Prescriptions/Med Rec: levoFLOXacin [Levaquin] 750 mg PO DAILY #5 tab metroNIDAZOLE [Flagyl] 500 mg PO Q8H #15 tab Home Medications: Home Meds Dicyclomine [Bentyl] 20 mg PO ASDIRECTED 08/04/19 [History] hydroCHLOROthiazide [Hydrochlorothiazide] 25 mg PO DAILY 08/04/19 [History] ALPRAZolam [Xanax] 0.25 mg PO BEDTIME 08/05/19 [History] Levothyroxine Sodium [Synthroid] 200 mcg PO DAILY 08/05/19 [History] levoFLOXacin [Levaquin] 750 mg PO DAILY #5 tab 08/06/19 [Rx] metroNIDAZOLE [Flagyl] 500 mg PO Q8H #15 tab 08/06/19 [Rx] Oxygen Therapy Mode: Room Air Patient Handouts: Diverticulitis, [id number], Panic Attack, [id number] Referrals: Ligia Richardson NP [Nurse Practitioner] - 08/12/19 10:00 am (Please check in at 9:30am.) Adria Aviles MD [Physician] - 08/23/19 11:00 am (please arrive at 11:00 for 11:30 appt. ) - Discharge Summary/Plan Comment DC Time >30 min.: Yes (45 mins ) - General Info Date of Service: 08/06/19 Admission Dx/Problem (Free Text: Admission Diagnosis/Problem Admission Diagnosis/Problem Diverticulitis Functional Status: Reports: Pain Controlled, Tolerating Diet, Ambulating, Urinating. Denies: New Symptoms - Review of Systems General: Reports: No Symptoms. Denies: Fever, Weakness, Fatigue, Malaise, Chills HEENT: Reports: No Symptoms. Denies: Headaches, Sore Throat Pulmonary: Reports: No Symptoms. Denies: Shortness of Breath, Pleuritic Chest Pain, Cough, Sputum, Wheezing Cardiovascular: Reports: No Symptoms. Denies: Chest Pain, Palpitations, Dyspnea on Exertion, Lightheadedness Gastrointestinal: Reports: Abdominal Pain (Improved ). Denies: Constipation, Diarrhea, Nausea, Vomiting Genitourinary: Reports: No Symptoms. Denies: Pain Musculoskeletal: Reports: No Symptoms Skin: Reports: No Symptoms. Denies: Cyanosis Neurological: Reports: No Symptoms. Denies: Confusion, Difficulty Walking, Gait Disturbance Psychiatric: Reports: Anxiety (at times ) - Patient Data Vitals - Most Recent: Last Vital Signs Temp 97.3 F 08/06/19 08:14 Pulse 69 08/06/19 08:14 Resp 18 08/06/19 08:14 BP 142/84 H 08/06/19 08:14 Pulse Ox 100 08/06/19 08:14 Weight - Most Recent: 189 lb I&O - Last 24 hours: Intake & Output 08/05/19 08/06/19 08/06/19 22:59 06:59 14:59 Intake Total 1025 1068 120 Output Total 900 600 Balance 125 468 120 Lab Results - Last 24 hrs: Laboratory Results - last 24 hr 08/05/19 08/06/19 08/06/19 Range/Units 17:44 06:18 06:18 WBC 6.25 (3.98-10.04) K/mm3 RBC 4.28 (3.98-5.22) M/mm3 Hgb 12.7 D (11.2-15.7) gm/dl Hct 38.9 (34.1-44.9) % MCV 90.9 (79.4-94.8) fl MCH 29.7 (25.6-32.2) pg MCHC 32.6 (32.2-35.5) g/dl RDW Std Deviation 43.6 (36.4-46.3) fL Plt Count 284 (182-369) K/mm3 MPV 9.5 (9.4-12.3) fl Neut % (Auto) 72.9 H (34.0-71.1) % Lymph % (Auto) 17.4 L (19.3-51.7) % Caroline % (Auto) 8.6 (4.7-12.5) % Eos % (Auto) 0.6 L (0.7-5.8) Baso % (Auto) 0.3 (0.1-1.2) % Neut # (Auto) 4.55 (1.56-6.13) K/mm3 Lymph # (Auto) 1.09 L (1.18-3.74) K/mm3 Caroline # (Auto) 0.54 H (0.24-0.36) K/mm3 Eos # (Auto) 0.04 (0.04-0.36) K/mm3 Baso # (Auto) 0.02 (0.01-0.08) K/mm3 Sodium 141 (136-145) mEq/L Potassium 3.5 (3.5-5.1) mEq/L Chloride 105 (98-107) mEq/L Carbon Dioxide 22 (21-32) mEq/L Anion Gap 17.5 H (5-15) BUN 6 L (7-18) mg/dL Creatinine 0.8 (0.55-1.02) mg/dL Est Cr Clr Drug Dosing 56.40 mL/min Estimated GFR (MDRD) > 60 (>60) mL/min BUN/Creatinine Ratio 7.5 L (14-18) Glucose 134 H (74-106) mg/dL POC Glucose 138 H (70-105) mg/dL Calcium 8.8 (8.5-10.1) mg/dL Magnesium 1.8 (1.8-2.4) mg/dl Total Bilirubin 0.3 (0.2-1.0) mg/dL AST 16 (15-37) U/L ALT 31 (14-59) U/L Alkaline Phosphatase 79 (46-116) U/L C-Reactive Protein 3.2 H* (<1.0) mg/dL Total Protein 7.5 (6.4-8.2) g/dl Albumin 3.6 (3.4-5.0) g/dl Globulin 3.9 gm/dL Albumin/Globulin Ratio 0.9 L (1-2) Med Orders - Current: Current Medications Alprazolam (Xanax) 0.25 mg PO BEDTIME [facility] Last Admin: 08/05/19 20:48 Dose: Not Given Diphenhydramine HCl (Benadryl) 50 mg IVPUSH Q6H PRN PRN Reason: Anxiety Hydrochlorothiazide (Hydrochlorothiazide) 25 mg PO DAILY [facility] Last Admin: 08/06/19 08:14 Dose: 25 mg Hydromorphone HCl (Dilaudid) 0.5 mg IVPUSH Q4H PRN PRN Reason: Pain Last Admin: 08/05/19 03:38 Dose: 0.5 mg Levofloxacin/Dextrose 750 mg/ (Premix) 150 mls @ 100 mls/hr IV Q24H [facility] Last Admin: 08/06/19 00:13 Dose: 100 mls/hr Metronidazole 500 mg/ Premix 100 mls @ 100 mls/hr IV Q8H [facility] Last Admin: 08/06/19 03:14 Dose: 100 mls/hr Levothyroxine Sodium (Levothyroxine) 200 mcg PO DAILY [facility] Last Admin: 08/06/19 08:14 Dose: 200 mcg Lorazepam (Ativan) 0.5 mg PO Q4H PRN PRN Reason: Anxiety Last Admin: 08/06/19 08:14 Dose: 0.5 mg Discontinued Medications Hydromorphone HCl (Dilaudid) 0.5 mg IVPUSH ONETIME ONE Stop: 08/04/19 22:52 Last Admin: 08/04/19 23:02 Dose: 0.5 mg Sodium Chloride (Normal Saline) 1,000 mls @ 999 mls/hr IV ASDIRECTED [facility] Last Admin: 08/04/19 21:08 Dose: 999 mls/hr Levofloxacin/Dextrose 750 mg/ (Premix) 150 mls @ 100 mls/hr IV ONETIME ONE Stop: 08/05/19 00:15 Last Admin: 08/05/19 00:06 Dose: 100 mls/hr Metronidazole 500 mg/ Premix 100 mls @ 100 mls/hr IV ONETIME ONE Stop: 08/04/19 23:50 Last Admin: 08/04/19 23:04 Dose: 100 mls/hr Potassium Chloride/Dextrose/Sod Cl (D5 Ns With 20 Meq Kcl) 1,000 mls @ 75 mls/ hr IV ASDIRECTED [facility] Last Admin: 08/05/19 19:55 Dose: 75 mls/hr Metronidazole 500 mg/ Premix 100 mls @ 100 mls/hr IV Q8H [facility] Last Admin: 08/05/19 08:06 Dose: 100 mls/hr Levothyroxine Sodium (Levothyroxine) 200 mcg PO DAILY [facility] Lorazepam (Ativan) 0.5 mg PO Q6H PRN PRN Reason: Anxiety Last Admin: 08/05/19 12:48 Dose: 0.5 mg Ondansetron HCl (Zofran) 4 mg IVPUSH ONETIME ONE Stop: 08/04/19 20:34 Last Admin: 08/04/19 21:08 Dose: 4 mg Ondansetron HCl (Zofran) 4 mg IVPUSH Q8H PRN PRN Reason: Nausea/Vomiting Last Admin: 08/05/19 03:37 Dose: 4 mg Prochlorperazine Edisylate (Compazine) 5 mg IVPUSH ONETIME ONE Stop: 08/05/19 10:01 Last Admin: 08/05/19 10:58 Dose: 5 mg Prochlorperazine Edisylate (Compazine) 5 mg IVPUSH Q6H PRN PRN Reason: Nausea/Vomiting Last Admin: 08/05/19 16:52 Dose: 5 mg - Exam Quality Assessment: Reports: DVT Prophylaxis General: Reports: Alert, Oriented, Cooperative, No Acute Distress HEENT: Reports: Pupils Equal, Pupils Reactive, Mucous Membr. Moist/[place] Neck: Reports: Supple, Trachea Midline Lungs: Reports: Clear to Auscultation, Normal Respiratory Effort Cardiovascular: Reports: Regular Rate, Regular Rhythm GI/Abdominal Exam: Normal Bowel Sounds, Soft, No Distention, Tender (mild generalized ) (Female) Exam: Deferred Rectal (Female) Exam: Deferred Back Exam: Reports: Normal Inspection, Full Range of Motion Extremities: Normal Inspection, Normal Range of Motion, Non-Tender, No Pedal Edema, Normal Capillary Refill Skin: Reports: Warm, Dry, Intact Neurological: Reports: No New Focal Deficit Psy/Mental Status: Reports: Alert, Normal Affect, Anxious (at times )
[2019-08-06] MEDS ORDERED: Acetaminophen 325 MG Tab PO PRN (15:13)
[2019-08-06] MEDS ORDERED: Ibuprofen 600 MG Tab PO ONE (15:30)
== END 2019-08-06 16:32 | disposition home or self-care (01) | DRG 392 ==
LOC: JD.ED 19:39 → JD.MS 23:10
PROVIDERS: ADMIT Family Medicine; ATTEND Family Medicine
DX: K57.32 Diverticulitis of large intestine without perforation or abscess without bleeding (principal); F41.9 Anxiety disorder, unspecified; R60.0 Localized edema; E89.0 Postprocedural hypothyroidism; K63.89 Other specified diseases of intestine; Z87.19 Personal history of other diseases of the digestive system; K58.9 Irritable bowel syndrome, unspecified; R35.0 Frequency of micturition; Z87.891 Personal history of nicotine dependence; Z79.890 Hormone replacement therapy; Z79.899 Other long term (current) drug therapy; Z88.1 Allergy status to other antibiotic agents
CPT/HCPCS: 36415; 74177; 80053; 81001; 85007; 85027; 86140; 99285; J1170; J2405; J3490; J7030; 82962; 83735; 85025; 99284; A9270-GY; J0780; J1956; J3480

== ENCOUNTER 2019-08-26 08:51 | Day surgery (SDC) | payer MEDICAID ==
[~2019-08-26 08:51] MED LIST: Lactated Ringers 1,000 ML IV SCH; Lidocaine 1%/Sod Bicarbonate in NS 8.4% 1 ML Syringe IDERM PRN; Sodium Chloride 0.9% 10 ML Syringe FLUSH PRN
[2019-08-26] MEDS ORDERED: Midazolam 1 MG/ML 2 ML SDV ONE (10:31)
--- NOTE | 2019-08-26 10:35 | PCM.PREANE ---
Preanesthetic Assessment - Anesthesia/Transfusion/Family Hx Anesthesia History: Prior Anesthesia Without Reaction Family History of Anesthesia Reaction: No Transfusion History: No Prior Transfusion(s) - Review of Systems General: No Symptoms Pulmonary: No Symptoms Cardiovascular: No Symptoms Gastrointestinal: No Symptoms Neurological: No Symptoms Other: Reports: Thyroid Problems (Hypothyroidism), Anxiety (Panic Attack) - Physical Assessment NPO Status Date: 08/26/19 NPO Status Time: 04:30 Vital Signs: Last Vital Signs Temp 36.7 C 08/26/19 09:05 Pulse 73 08/26/19 09:05 Resp 16 08/26/19 09:05 BP 137/82 08/26/19 09:05 Pulse Ox 97 08/26/19 09:05 Height: 1.6 m Weight: 78.018 kg ASA Class: 2 Mental Status: Alert & Oriented x3 Airway Class: Mallampati = 2 Dentition: Reports: Normal Dentition (Upper and lower plate) Thyro-Mental Finger Breadths: 2 Mouth Opening Finger Breadths: 3 ROM/Head Extension: Full Lungs: Clear to Auscultation, Normal Respiratory Effort Cardiovascular: Regular Rate, Regular Rhythm - Allergies Allergies/Adverse Reactions: Allergies Allergy/AdvReac Type Severity Reaction Status Date / Time erythromycin base Allergy Tachycardia Verified 08/26/19 09:28 ondansetron [From Zofran] Allergy Tremors Verified 08/26/19 09:28 - Anesthesia Plan Pre-Op Medication Ordered: Anxiolytic - Acknowledgements Anesthesia Type Planned: MAC Pt an Appropriate Candidate for the Planned Anesthesia: Yes Alternatives and Risks of Anesthesia Discussed w Pt/Guardian: Yes Pt/Guardian Understands and Agrees with Anesthesia Plan: Yes PreAnesthesia Questionnaire HEENT History: Reports: Other (See Below) Other HEENT History: Impaired vision with reading glasses, full upper and lower dentures Cardiovascular History: Reports: Hypertension Other Cardiovascular History: edema Respiratory History: Reports: None Gastrointestinal History: Reports: Diverticulosis, Irritable Bowel Syndrome Genitourinary History: Reports: None 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: Musculoskeletal History: Reports: None Neurological History: Reports: None Psychiatric History: Reports: Anxiety Endocrine/Metabolic History: Reports: Hypothyroidism Hematologic History: Reports: None Immunologic History: Reports: None Oncologic (Cancer) History: Reports: None Other Dermatologic History: Cyst excision - Infectious Disease History Infectious Disease History: Reports: Chicken Pox, Measles - Past Surgical History Head Surgeries/Procedures: Reports: None HEENT Surgical History: Reports: None Cardiovascular Surgical History: Reports: None Respiratory Surgical History: Reports: None GI Surgical History: Reports: None Female Surgical History: Reports: Section, Tubal Ligation Other Endocrine Surgeries/Procedures: Thyroidectomy Neurological Surgical History: Reports: None Musculoskeletal Surgical History: Reports: None Oncologic Surgical History: Reports: None Dermatological Surgical History: Reports: None - SUBSTANCE USE Smoking Status *Q: Former Smoker Tobacco Use Within Last Twelve Months: Cigarettes Second Hand Smoke Exposure: No Recreational Drug Use History: No - HOME MEDS Home Medications: Home Meds Dicyclomine [Bentyl] 20 mg PO BID PRN 08/04/19 [History] hydroCHLOROthiazide [Hydrochlorothiazide] 25 mg PO DAILY 08/04/19 [History] ALPRAZolam [Xanax] 0.25 mg PO BEDTIME 08/05/19 [History] Levothyroxine Sodium [Synthroid] 200 mcg PO DAILY 08/05/19 [History] valACYclovir HCl [Valtrex] 500 mg PO DAILY PRN 08/25/19 [History] - CURRENT (IN HOUSE) MEDS Current Meds: Current Medications Lactated Ringer's (Ringers, Lactated) 1,000 mls @ 125 mls/hr IV ASDIRECTED STEF Stop: 08/26/19 23:00 Last Admin: 08/26/19 09:10 Dose: 125 mls/hr Lidocaine/Sodium Bicarbonate (Buffered Lidocaine 1% In Ns 8.4%) 0.25 ml IDERM ONETIME PRN PRN Reason: Prior to IV Start Stop: 08/26/19 18:00 Last Admin: 08/26/19 09:10 Dose: 0.25 ml Sodium Chloride (Saline Flush) 10 ml FLUSH ASDIRECTED PRN PRN Reason: Keep Vein Open Stop: 08/26/19 18:00
[2019-08-26] MEDS ORDERED: Propofol 200 MG/20 ML SDV ONE ×3 (10:50→11:37)
[2019-08-26] MEDS ORDERED: Lidocaine 1% 4 ML ONE (10:52)
[2019-08-26] MEDS ORDERED: fentaNYL 100 MCG/2 ML SDV ONE (10:53)
--- NOTE | 2019-08-26 12:07 | PCM.PRNOTE ---
- Free Text/Narrative Note: Date: 08/26/2019 Procedure: diagnostic colonoscopy Indication: recent initial episode of diverticulitis Endoscopist: Adria Aviles MD Findings: Ileocecal valve visualized. Prep was excellent. Diverticular disease throughout the colon. Submucosal mass resected with snare in sigmoid colon. No lesion suspicious for malignancy identified. Detailed Report: The patient was taken to the endoscopy suite and placed in left lateral decubitus position. Time out was performed and monitored anesthesia care was initiated. The anus had hemorrhoid-associated skin tags. Digital rectal exam was unremarkable. The lubricated colonoscope was then inserted and advanced all the way to the cecum. The ileocecal valve was visualized. The prep was noted to be excellent. On slow withdrawal of the scope, mucosal surfaces were carefully inspected. There was diverticular disease throughout the colon, though with relative sparing of the descending colon. The sigmoid colon appeared normal except for noted diverticula. A small well circumscribed submucosal lesion was resected with the hot snare. There were internal hemorrhoids noted on retroflexion of the scope within the rectum. The patient tolerated the procedure well. Adria Aviles MD General Surgery
--- NOTE | 2019-08-26 12:40 | PCM48HPAN ---
Post Anesthesia Note - EVALUATION WITHIN 48HRS OF ANESTHETIC Vital Signs in Normal Range: Yes Patient Participated in Evaluation: Yes Respiratory Function Stable: Yes Airway Patent: Yes Cardiovascular Function Stable: Yes Hydration Status Stable: Yes Pain Control Satisfactory: Yes Nausea and Vomiting Control Satisfactory: Yes Mental Status Recovered: Yes Vital Signs: Last Vital Signs Temp 97.2 F 08/26/19 12:01 Pulse 62 08/26/19 12:01 Resp 20 08/26/19 12:01 BP 123/77 08/26/19 12:01 Pulse Ox 98 08/26/19 12:15
== END 2019-08-26 13:20 | disposition home or self-care (01) ==
LOC: JD.SDS 08:51
PROVIDERS: ATTEND Surgery
DX: K63.89 Other specified diseases of intestine (principal); K57.30 Diverticulosis of large intestine without perforation or abscess without bleeding; F41.9 Anxiety disorder, unspecified; E03.9 Hypothyroidism, unspecified; I10 Essential (primary) hypertension; Z88.1 Allergy status to other antibiotic agents; Z88.8 Allergy status to other drugs, medicaments and biological substances; Z79.899 Other long term (current) drug therapy; Z87.19 Personal history of other diseases of the digestive system; Z79.890 Hormone replacement therapy; Z87.891 Personal history of nicotine dependence
CPT/HCPCS: 45385; J2001; J2250; J2704; J3010; J7120; 00812

== ENCOUNTER 2020-03-17 16:13 | Emergency (ER) | payer MEDICAID ==
[2020-03-17] MEDS ORDERED: traMADol 50 MG Tab PO ONE (19:00)
--- NOTE | 2020-03-17 19:05 | EDM.PDOC ---
ED HPI GENERAL MEDICAL PROBLEM - General Chief Complaint: Lower Extremity Injury/Pain Stated Complaint: R KNEE PAIN Time Seen by Provider: 03/17/20 18:36 Source of Information: Reports: Patient, RN Notes Reviewed History Limitations: Reports: No Limitations - History of Present Illness INITIAL COMMENTS - FREE TEXT/NARRATIVE: Patient is a 59-year-old female who presents to the ED for the evaluation of her right knee pain. She does note that she has pretty extensive arthritis and bone spurs in her right knee. She does see Dr. Bowers for management of this, and has received cortisone shots in the past. Her last one was at the end of November. She is scheduled to get another one on March 28, but she has having increased pain in her knee, she is using Voltaren gel at home along with Tylenol, has a history of diverticulitis does not like to take a lot of NSAIDs if possible. She does state that she does work at [employer], and is on her feet quite a bit, and does not really want to miss work, so he was wondering if she could get something for pain, so she can go to work. Other than this she is not having any sick-like symptoms, fever/chills, cough/shortness of breath, nausea/vomiting/diarrhea. Right Knee Pain Score (Numeric/FACES): 8 - Related Data Allergies Allergy/AdvReac Type Severity Reaction Status Date / Time erythromycin base Allergy Tachycardia Verified 08/26/19 09:28 ondansetron [From Zofran] Allergy Tremors Verified 08/26/19 09:28 Home Meds: Home Meds Dicyclomine [Bentyl] 20 mg PO BID PRN 08/04/19 [History] hydroCHLOROthiazide [Hydrochlorothiazide] 25 mg PO DAILY 08/04/19 [History] ALPRAZolam [Xanax] 0.25 mg PO BEDTIME 08/05/19 [History] Levothyroxine Sodium [Synthroid] 200 mcg PO DAILY 08/05/19 [History] valACYclovir HCl [Valtrex] 500 mg PO DAILY PRN 08/25/19 [History] traMADol [Ultram] 50 mg PO Q6H PRN #20 tab 03/17/20 [Rx] Past Medical History HEENT History: Reports: Other (See Below) Other HEENT History: Impaired vision with reading glasses, full upper and lower dentures Cardiovascular History: Reports: Hypertension Other Cardiovascular History: edema Respiratory History: Reports: None Gastrointestinal History: Reports: Diverticulosis, Irritable Bowel Syndrome Genitourinary History: Reports: None 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: Musculoskeletal History: Reports: None Neurological History: Reports: None Psychiatric History: Reports: Anxiety Endocrine/Metabolic History: Reports: Hypothyroidism Hematologic History: Reports: None Immunologic History: Reports: None Oncologic (Cancer) History: Reports: None Other Dermatologic History: Cyst excision - Infectious Disease History Infectious Disease History: Reports: Chicken Pox, Measles - Past Surgical History Head Surgeries/Procedures: Reports: None HEENT Surgical History: Reports: None Cardiovascular Surgical History: Reports: None Respiratory Surgical History: Reports: None GI Surgical History: Reports: None Female Surgical History: Reports: Section, Tubal Ligation Other Endocrine Surgeries/Procedures: Thyroidectomy Neurological Surgical History: Reports: None Musculoskeletal Surgical History: Reports: None Oncologic Surgical History: Reports: None Dermatological Surgical History: Reports: None Social & Family History - Family History Family Medical History: Noncontributory - Caffeine Use Caffeine Use: Reports: Coffee Other Caffeine Use: 3-5 cups per day Review of Systems - Review of Systems Review Of Systems: Comprehensive ROS is negative, except as noted in HPI. ED EXAM, GENERAL - Physical Exam Exam: See Below Exam Limited By: No Limitations General Appearance: Alert, WD/WN, No Apparent Distress Respiratory/Chest: No Respiratory Distress, Lungs Clear, Normal Breath Sounds, No Accessory Muscle Use, Chest Non-Tender Cardiovascular: Normal Peripheral Pulses, Regular Rate, Rhythm, No Murmur Extremities: Normal Inspection, Normal Capillary Refill, Limited Range of Motion (of right knee d/t pain) Neurological: Alert, Oriented, Normal Cognition, No Motor/Sensory Deficits Psychiatric: Normal Affect, Normal Mood Skin Exam: Warm, Dry, Intact, Normal Color, No Rash Course - Vital Signs Last Recorded V/S: Last Vital Signs Temp 98.0 F 03/17/20 18:31 Pulse 67 03/17/20 18:31 Resp 16 03/17/20 18:31 BP 159/92 H 03/17/20 18:31 Pulse Ox 100 03/17/20 18:31 - Orders/Labs/Meds Meds: Medications Discontinued Medications Generic Name Dose Route Start Last Admin Trade Name Freq PRN Reason Stop Dose Admin Tramadol HCl 50 mg 03/17/20 19:00 03/17/20 19:11 Ultram PO 03/17/20 19:01 50 mg ONETIME ONE Administration - Re-Assessments/Exams Free Text/Narrative Re-Assessment/Exam: 03/17/20 19:05 Patient presents to the ED for her ongoing knee pain. We will trial her with tramadol for pain management. Departure - Departure Time of Disposition: 19:21 Disposition: Home, Self-Care 01 Condition: Good Clinical Impression: Right knee pain Qualifiers: Chronicity: chronic Qualified Code(s): M25.561 - Pain in right knee; G89.29 - Other chronic pain - Discharge Information *PRESCRIPTION DRUG MONITORING PROGRAM REVIEWED*: Yes *COPY OF PRESCRIPTION DRUG MONITORING REPORT IN PATIENT TERRI: No Prescriptions: traMADol [Ultram] 50 mg PO Q6H PRN #20 tab PRN Reason: Pain Instructions: Chronic Knee Pain, Adult, [id number] Referrals: Ligia Richardson CRANBERR[employer] BOG SUPERVISOR [Primary Care Provider] - Forms: ED Department Discharge Additional Instructions: You have been evaluated in the ED for your right knee pain. Please use ice/heat as tolerated to the affected area. Please try to elevate the affected area to relieve swelling. You may take Tylenol 500 mg or ibuprofen 600mg q6 hrs for pain relief. Please do so until you have a tolerable level of pain with activity. Do not exceed 4000mg Tylenol or 3200mg ibuprofen in a 24 hour time period. You were given a prescription for a strong pain medication, Tramadol 50mg, please take 1 tab every 6 hours as needed for pain not relieved by Tylenol or ibuprofen alone. Please note this medication does contain Tylenol in it, so do not take more than 4000 mg in a 24-hour time span. These medications can be addictive, so please take as few as possible to achieve adequate pain control. These meds can also be quite constipating, recommend that you increase your oral fluid intake and take a stool softener like MiraLAX while taking these medications. Do not drive while taking this medication. Please return to ED if your symptoms should change or worsen. Sepsis Event Note (ED) - Evaluation Sepsis Screening Result: No Definite Risk - Focused Exam Vital Signs: Vital Signs Temp Pulse Resp BP Pulse Ox 03/17/20 18:31 98.0 F 67 16 159/92 H 100
== END 2020-03-17 19:40 | disposition home or self-care (01) ==
LOC: JD.ED 16:13
DX: G89.29 Other chronic pain (principal); M25.561 Pain in right knee; F41.9 Anxiety disorder, unspecified; E03.9 Hypothyroidism, unspecified; I10 Essential (primary) hypertension; Z88.1 Allergy status to other antibiotic agents; Z88.8 Allergy status to other drugs, medicaments and biological substances; Z79.899 Other long term (current) drug therapy
CPT/HCPCS: 99283; A9270; 99282

== ENCOUNTER 2020-05-30 12:33 | Emergency (ER) | payer MEDICAID ==
--- NOTE | 2020-05-30 13:08 | EDM.PDOC ---
ED HPI GENERAL MEDICAL PROBLEM - General Chief Complaint: Chest Pain Stated Complaint: CHEST HEAVINESS/SOB/DRY COUGH Time Seen by Provider: 05/30/20 12:45 Source of Information: Reports: Patient, RN Notes Reviewed History Limitations: Reports: No Limitations - History of Present Illness INITIAL COMMENTS - FREE TEXT/NARRATIVE: Patient is a 59-year-old female who presents to the ED for evaluation of her chest heaviness/dry cough. She is status post COVID-19 infection. She was positive on May 12, and off quarantine 26 May. Patient went to the walk-in clinic today, she was having continuing chest discomfort, and a dry cough that she states she just cannot get anything up with. She does realize there might be a portion of anxiety related to the disease, she is not sure how long she should still be sick. She is complaining of generalized fatigue states that she put her [place] tree up this weekend, and even that took a lot of effort. She feels like she is having some "palpitations" in her chest when she has to cough. She does note some cardiac history for her family that seems to be concerning to her. She states that she works at [employer], and she was supposed to go back to work this week however the fatigue has been too much so she called off from work yesterday. Her primary care provider is Ligia Richardson. She is not had any fevers or chills, shortness of breath, but she is complaining of a dry cough. She further denies any sort of nausea/vomiting/diarrhea. Patient does appear somewhat anxious as she teared up during the exam and history talking about her family. Chest Pain Score (Numeric/FACES): 5 - Related Data Allergies Allergy/AdvReac Type Severity Reaction Status Date / Time erythromycin base Allergy Tachycardia Verified 05/30/20 12:46 ondansetron [From Zofran] Allergy Tremors Verified 05/30/20 12:46 Home Meds: Home Meds Dicyclomine [Bentyl] 20 mg PO BID PRN 08/04/19 [History] hydroCHLOROthiazide [Hydrochlorothiazide] 25 mg PO DAILY 08/04/19 [History] ALPRAZolam [Xanax] 0.25 mg PO BEDTIME 08/05/19 [History] Levothyroxine Sodium [Synthroid] 200 mcg PO DAILY 08/05/19 [History] valACYclovir HCl [Valtrex] 500 mg PO DAILY PRN 08/25/19 [History] traMADol [Ultram] 50 mg PO Q6H PRN #20 tab 03/17/20 [Rx] Codeine/Promethazine [Phenergan with Codeine] 5 ml PO Q4HR PRN #120 ml 05/30/20 [Rx] Past Medical History HEENT History: Reports: Other (See Below) Other HEENT History: Impaired vision with reading glasses, full upper and lower dentures Cardiovascular History: Reports: Hypertension Other Cardiovascular History: edema Gastrointestinal History: Reports: Diverticulosis, Irritable Bowel Syndrome 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: Psychiatric History: Reports: Anxiety Endocrine/Metabolic History: Reports: Hypothyroidism Dermatologic History: Reports: Other (See Below) Other Dermatologic History: Cyst excision - Infectious Disease History Infectious Disease History: Reports: Chicken Pox, Measles, Novel Coronavirus - Past Surgical History Female Surgical History: Reports: Section, Tubal Ligation Endocrine Surgical History: Reports: Thyroidectomy Other Endocrine Surgeries/Procedures: Thyroidectomy Social & Family History - Family History Family Medical History: No Pertinent Family History - Tobacco Use Tobacco Use Status *Q: Never Tobacco User Second Hand Smoke Exposure: No - Caffeine Use Caffeine Use: Reports: Coffee Other Caffeine Use: 3-5 cups per day - Recreational Drug Use Recreational Drug Use: No ED ROS GENERAL - Review of Systems Review Of Systems: Comprehensive ROS is negative, except as noted in HPI. ED EXAM, GENERAL - Physical Exam Exam: See Below Exam Limited By: No Limitations General Appearance: Alert, WD/WN, No Apparent Distress, Anxious (mild and generalized) Respiratory/Chest: No Respiratory Distress, Lungs Clear, Normal Breath Sounds, No Accessory Muscle Use, Chest Non-Tender Cardiovascular: Normal Peripheral Pulses, Regular Rate, Rhythm, No Murmur Peripheral Pulses: 2+: Radial (L), Radial (R) Extremities: Normal Inspection, Normal Capillary Refill Neurological: Alert, Oriented, Normal Cognition, No Motor/Sensory Deficits Psychiatric: Normal Affect, Normal Mood Skin Exam: Warm, Dry, Intact, Normal Color, No Rash #1 Interpretation EKG Date: 05/30/20 Time: 13:00 Rhythm: NSR Rate (Beats/Min): 63 [place]: Normal P-Wave: Present QRS: Normal ST-T: Normal QT: Normal EKG Interpretation Comments: No obvious ischemia or acute ST changes noted, reviewed by myself and Dr. Kirkpatrick. Course - Vital Signs Last Recorded V/S: Last Vital Signs Temp 97.6 F 05/30/20 12:42 Pulse 70 05/30/20 12:42 Resp 16 05/30/20 12:42 BP 164/103 H 05/30/20 12:42 Pulse Ox 100 05/30/20 12:42 - Orders/Labs/Meds Orders: Active Orders 24 hr Category Date Time Status EKG Documentation Completion [RC] STAT Care 05/30/20 13:00 Active Incentive Spirometry [RT Incentive Spirometry] [RC] Care 05/30/20 14:15 Ordered Q1HWA Labs: Laboratory Tests 05/30/20 05/30/20 05/30/20 Range/Units 13:13 13:13 13:13 WBC 5.73 (3.98-10.04) K/mm3 RBC 4.42 (3.98-5.22) M/mm3 Hgb 13.5 (11.2-15.7) gm/dl Hct 39.9 (34.1-44.9) % MCV 90.3 (79.4-94.8) fl MCH 30.5 (25.6-32.2) pg MCHC 33.8 (32.2-35.5) g/dl RDW Std Deviation 41.4 (36.4-46.3) fL Plt Count 278 (182-369) K/mm3 MPV 9.4 (9.4-12.3) fl Neut % (Auto) 59.4 (34.0-71.1) % Lymph % (Auto) 29.1 (19.3-51.7) % [place] % (Auto) 10.1 (4.7-12.5) % Eos % (Auto) 0.9 (0.7-5.8) Baso % (Auto) 0.3 (0.1-1.2) % Neut # (Auto) 3.40 (1.56-6.13) K/mm3 Lymph # (Auto) 1.67 (1.18-3.74) K/mm3 [place] # (Auto) 0.58 H (0.24-0.36) K/mm3 Eos # (Auto) 0.05 (0.04-0.36) K/mm3 Baso # (Auto) 0.02 (0.01-0.08) K/mm3 PT 11.3 (9.7-12.0) SECONDS INR 1.06 APTT 25.3 (21.7-31.4) SECONDS Sodium 139 (136-145) mEq/L Potassium 3.8 (3.5-5.1) mEq/L Chloride 103 (98-107) mEq/L Carbon Dioxide 27 (21-32) mEq/L Anion Gap 12.8 (5-15) BUN 5 L (7-18) mg/dL Creatinine 0.7 (0.55-1.02) mg/dL Est Cr Clr Drug Dosing 73.35 mL/min Estimated GFR (MDRD) > 60 (>60) mL/min BUN/Creatinine Ratio 7.1 L (14-18) Glucose 97 (74-106) mg/dL Calcium 9.6 (8.5-10.1) mg/dL Magnesium 2.0 (1.8-2.4) mg/dl Total Bilirubin 0.3 (0.2-1.0) mg/dL AST 14 L (15-37) U/L ALT 20 (14-59) U/L Alkaline Phosphatase 86 (46-116) U/L Troponin I < 0.017 (0.00-0.056) ng/mL NT-Pro-B Natriuret Pep (0-125) pg/mL Total Protein 7.6 (6.4-8.2) g/dl Albumin 4.1 (3.4-5.0) g/dl Globulin 3.5 gm/dL Albumin/Globulin Ratio 1.2 (1-2) 05/30/20 Range/Units 13:13 WBC (3.98-10.04) K/mm3 RBC (3.98-5.22) M/mm3 Hgb (11.2-15.7) gm/dl Hct (34.1-44.9) % MCV (79.4-94.8) fl MCH (25.6-32.2) pg MCHC (32.2-35.5) g/dl RDW Std Deviation (36.4-46.3) fL Plt Count (182-369) K/mm3 MPV (9.4-12.3) fl Neut % (Auto) (34.0-71.1) % Lymph % (Auto) (19.3-51.7) % [place] % (Auto) (4.7-12.5) % Eos % (Auto) (0.7-5.8) Baso % (Auto) (0.1-1.2) % Neut # (Auto) (1.56-6.13) K/mm3 Lymph # (Auto) (1.18-3.74) K/mm3 [place] # (Auto) (0.24-0.36) K/mm3 Eos # (Auto) (0.04-0.36) K/mm3 Baso # (Auto) (0.01-0.08) K/mm3 PT (9.7-12.0) SECONDS INR APTT (21.7-31.4) SECONDS Sodium (136-145) mEq/L Potassium (3.5-5.1) mEq/L Chloride (98-107) mEq/L Carbon Dioxide (21-32) mEq/L Anion Gap (5-15) BUN (7-18) mg/dL Creatinine (0.55-1.02) mg/dL Est Cr Clr Drug Dosing mL/min Estimated GFR (MDRD) (>60) mL/min BUN/Creatinine Ratio (14-18) Glucose (74-106) mg/dL Calcium (8.5-10.1) mg/dL Magnesium (1.8-2.4) mg/dl Total Bilirubin (0.2-1.0) mg/dL AST (15-37) U/L ALT (14-59) U/L Alkaline Phosphatase (46-116) U/L Troponin I (0.00-0.056) ng/mL NT-Pro-B Natriuret Pep 82 (0-125) pg/mL Total Protein (6.4-8.2) g/dl Albumin (3.4-5.0) g/dl Globulin gm/dL Albumin/Globulin Ratio (1-2) - Re-Assessments/Exams Free Text/Narrative Re-Assessment/Exam: 05/30/20 13:08 Patient is status post COVID-19 infection. We will recheck a chest x-ray, EKG, basic labs to rule out cardiac etiology. I do believe that the patient has a lingering side effects from COVID-19 along with some anxiety. She does think that she would need a work note so she can have some more time off. 05/30/20 13:58 The patient's labs are unremarkable. Patient will be discharged home with general conservative measures and have her follow-up with her regular care provider, for extending of work release next week if needed. I did educate her on COVID-19 disease, and that she might have lingering symptoms longer than 2 to 3 weeks after infection she seemed to understand this. Departure - Departure Time of Disposition: 13:58 Disposition: Home, Self-Care 01 Condition: Good Clinical Impression: Sensation of chest pressure, Cough Prescriptions: Codeine/Promethazine [Phenergan with Codeine] 5 ml PO Q4HR PRN #120 ml PRN Reason: Cough Instructions: Nonspecific Chest Pain, Adult, [id number] Referrals: Ligia Richardson, BEATER MACHINE OPERATOR [Primary Care Provider] - Forms: ED Department Discharge, ED Return to Work/School Form Additional Instructions: You were evaluated in the ER today for your ongoing chest pressure after your COVID-19 disease. Your laboratory evaluation, EKG and chest x-ray were unremarkable at today's visit, there is no sign of a bacterial pneumonia. You are likely still recovering from your COVID-19 disease. This may take a few days to weeks, as the timeline for recovering from this disease is fairly unknown. You have been given another weeks off of work, to try to recover at home, I do recommend that you follow-up with your regular care provider next week if you feel you need more time off of work. Please use the cough syrup, 5 to 10 mL p.o. every 4 hours as needed for further cough purposes. Do not drive while taking this medication. Please return to the ER at any time if symptoms change or worsen. Sepsis Event Note (ED) - Evaluation Sepsis Screening Result: No Definite Risk - Focused Exam Vital Signs: Vital Signs Temp Pulse Resp BP Pulse Ox 05/30/20 12:42 97.6 F 70 16 164/103 H 100 - My Orders Last 24 Hours: My Active Orders 05/30/20 13:00 EKG Documentation Completion [RC] STAT 05/30/20 14:15 Incentive Spirometry [RT Incentive Spirometry] [RC] Q1HWA - Assessment/Plan Last 24 Hours: My Active Orders 05/30/20 13:00 EKG Documentation Completion [RC] STAT 05/30/20 14:15 Incentive Spirometry [RT Incentive Spirometry] [RC] Q1HWA
--- NOTE | 2020-05-30 13:55 | CR ---
Chest: 2 views of the chest were obtained. Comparison: No previous chest imaging is available. Findings: Heart and mediastinum: Heart size and mediastinum are normal. No mediastinal abnormality is seen. Lungs: Minimal linear density is seen within the left base within the lingula. This is most likely due to scar or minimal atelectasis. Lungs otherwise are clear. Osseous: No acute osseous findings are seen. Impression: 1. Minimal scar or atelectasis within the lingula. 2. Two-view chest x-ray is otherwise unremarkable. Diagnostic code #2
== END 2020-05-30 14:45 | disposition home or self-care (01) ==
LOC: JD.ED 12:33
DX: R07.89 Other chest pain (principal); R05 Cough; I10 Essential (primary) hypertension; F41.9 Anxiety disorder, unspecified; E03.9 Hypothyroidism, unspecified; Z79.899 Other long term (current) drug therapy; Z88.1 Allergy status to other antibiotic agents; Z88.8 Allergy status to other drugs, medicaments and biological substances
CPT/HCPCS: 36415; 71046; 71046-26; 80053; 83735; 83880; 84484; 85025; 85610; 85730; 93005; 93010; 99283; 99285-25

== ENCOUNTER 2020-10-06 20:15 | Emergency (ER) | payer BC, MEDICAID ==
[2020-10-06] MEDS ORDERED: Metoclopramide 10 MG/2 ML SDV IVPUSH ONE (20:37)
[2020-10-06] MEDS ORDERED: HYDROmorphone 0.5 MG/0.5 ML Syringe IVPUSH ONE (20:38)
--- NOTE | 2020-10-06 20:43 | EDM.PDOC ---
ED HPI GENERAL MEDICAL PROBLEM - General Chief Complaint: Abdominal Pain Stated Complaint: ABDOMINAL PAIN Time Seen by Provider: 10/06/20 20:17 Source of Information: Reports: Patient History Limitations: Reports: No Limitations - History of Present Illness INITIAL COMMENTS - FREE TEXT/NARRATIVE: This is a 60-year-old female. For the last 4 to 5 days she has been having generalized abdominal pain this sort of comes and goes. It seems to be everywhere but more prominent in the epigastric or right upper quadrant. She does have a history of chronic abdominal pain and irritable bowel syndrome. About a year ago she did have a history of diverticulitis. She has had no fever though she has had some chills. This morning she had some diarrhea and yesterday diarrhea and today some nausea but no vomiting. She says the pain in her right upper quadrant seems to radiate to her back and up into her chest. She denies any esophageal reflux. She still has her gallbladder her appendix and her uterus and ovaries. Abdomen Pain Score (Numeric/FACES): 7 - Related Data Allergies Allergy/AdvReac Type Severity Reaction Status Date / Time erythromycin base Allergy Tachycardia Verified 10/06/20 20:23 ondansetron [From Zofran] Allergy Tremors Verified 10/06/20 20:23 Home Meds: Home Meds Dicyclomine [Bentyl] 20 mg PO BID PRN 08/04/19 [History] hydroCHLOROthiazide [Hydrochlorothiazide] 25 mg PO DAILY 08/04/19 [History] ALPRAZolam [Xanax] 0.25 mg PO BEDTIME 08/05/19 [History] Levothyroxine Sodium [Synthroid] 200 mcg PO DAILY 08/05/19 [History] valACYclovir HCl [Valtrex] 500 mg PO DAILY PRN 08/25/19 [History] Acetaminophen/oxyCODONE [Percocet 325-5 MG] 1 each PO Q4H PRN #15 tab 10/06/20 [Rx] Promethazine [Phenergan] 25 mg PO Q6H PRN #15 tab 10/06/20 [Rx] Past Medical History HEENT History: Reports: Other (See Below) Other HEENT History: Impaired vision with reading glasses, full upper and lower dentures Cardiovascular History: Reports: Hypertension Other Cardiovascular History: edema Gastrointestinal History: Reports: Diverticulosis, Irritable Bowel Syndrome 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: Reports: Psychiatric History: Reports: Anxiety Endocrine/Metabolic History: Reports: Hypothyroidism Hematologic History: Reports: None Immunologic History: Reports: None Oncologic (Cancer) History: Reports: None Dermatologic History: Reports: Other (See Below) Other Dermatologic History: Cyst excision - Infectious Disease History Infectious Disease History: Reports: Chicken Pox, Measles, Novel Coronavirus - Past Surgical History Respiratory Surgical History: Reports: None Female Surgical History: Reports: Section, Tubal Ligation Endocrine Surgical History: Reports: Thyroidectomy Other Endocrine Surgeries/Procedures: Thyroidectomy Neurological Surgical History: Reports: None Dermatological Surgical History: Reports: None Social & Family History - Family History Family Medical History: No Pertinent Family History - Tobacco Use Tobacco Use Status *Q: Former Tobacco User Used Tobacco, but Quit: Yes Month/Year Tobacco Last Used: 1999 - Caffeine Use Caffeine Use: Reports: Coffee Other Caffeine Use: 3-5 cups per day - Recreational Drug Use Recreational Drug Use: No ED ROS GENERAL - Review of Systems Review Of Systems: See Below Constitutional: Reports: Chills. Denies: Fever HEENT: Reports: No Symptoms Respiratory: Denies: Shortness of Breath, Cough Cardiovascular: Reports: Chest Pain Endocrine: Reports: No Symptoms GI/Abdominal: Reports: Abdominal Pain, Diarrhea, Nausea. Denies: Constipation, Vomiting : Reports: No Symptoms Musculoskeletal: Reports: Back Pain Skin: Reports: No Symptoms Neurological: Reports: No Symptoms Psychiatric: Reports: Anxiety, Other (She is tearful because her on August 29.) Hematologic/Lymphatic: Reports: No Symptoms ED EXAM, GI/ABD - Physical Exam Exam: See Below Exam Limited By: No Limitations General Appearance: Alert, WD/WN, Mild Distress Eyes: Bilateral: Normal Appearance Ears: Normal External Exam Throat/Mouth: Normal Voice, No Airway Compromise Head: Normocephalic Neck: Supple Respiratory/Chest: No Respiratory Distress, Lungs Clear, Normal Breath Sounds Cardiovascular: Regular Rate, Rhythm, No Murmur GI/Abdominal Exam: Distended, Tender, Other (Tender all over her abdomen but it seems to be most prominent in the right upper quadrant with a positive Pearl's, bowel sounds are present but very decreased.). No: Guarding, Rigid, Rebound Back Exam: Full Range of Motion Extremities: Normal Inspection, Normal Range of Motion Neurological: Alert, Oriented Psychiatric: Anxious, Tearful, Other (Tearful only when she talks about her who .) Skin Exam: Warm, Dry #1 Interpretation EKG Date: 10/06/20 Time: 20:50 EKG Interpretation Comments: EKG shows a sinus rhythm rate of 61, there is no acute ST or T wave changes noted, no acute ischemia noted, PAC is noted. Course - Vital Signs Last Recorded V/S: Last Vital Signs Temp 97.1 F 10/06/20 20:20 Pulse 75 10/06/20 20:20 Resp 16 10/06/20 20:20 BP 149/89 H 10/06/20 20:20 Pulse Ox 100 10/06/20 20:20 - Orders/Labs/Meds Orders: Active Orders 24 hr Category Date Time Status EKG 12 Lead [EKG Documentation Completion] [RC] STAT Care 10/06/20 20:39 Active Abdomen Ltd [US] Stat Exams 10/06/20 20:39 Taken Lactated Ringers [Ringers, Lactated] 1,000 ml Med 10/06/20 20:45 Active IV ASDIRECTED Medication Orders Lactated Ringer's (Ringers, Lactated) 1,000 mls @ 500 mls/hr IV ASDIRECTED STEF Last Admin: 10/06/20 20:47 Dose: 500 mls/hr Documented by: EUGENE Labs: Laboratory Tests 10/06/20 10/06/20 Range/Units 20:45 20:45 WBC 6.34 (3.98-10.04) K/mm3 RBC 4.25 (3.98-5.22) M/mm3 Hgb 13.3 (11.2-15.7) gm/dl Hct 38.4 (34.1-44.9) % MCV 90.4 (79.4-94.8) fl MCH 31.3 (25.6-32.2) pg MCHC 34.6 (32.2-35.5) g/dl RDW Std Deviation 41.7 (36.4-46.3) fL Plt Count 262 (182-369) K/mm3 MPV 9.5 (9.4-12.3) fl Neut % (Auto) 50.5 (34.0-71.1) % Lymph % (Auto) 38.2 (19.3-51.7) % [place] % (Auto) 9.8 (4.7-12.5) % Eos % (Auto) 0.9 (0.7-5.8) Baso % (Auto) 0.6 (0.1-1.2) % Neut # (Auto) 3.20 (1.56-6.13) K/mm3 Lymph # (Auto) 2.42 (1.18-3.74) K/mm3 [place] # (Auto) 0.62 H (0.24-0.36) K/mm3 Eos # (Auto) 0.06 (0.04-0.36) K/mm3 Baso # (Auto) 0.04 (0.01-0.08) K/mm3 Sodium 140 (136-145) mEq/L Potassium 3.4 L (3.5-5.1) mEq/L Chloride 103 (98-107) mEq/L Carbon Dioxide 26 (21-32) mEq/L Anion Gap 14.4 (5-15) BUN 5 L (7-18) mg/dL Creatinine 1.0 (0.55-1.02) mg/dL Est Cr Clr Drug Dosing 50.73 mL/min Estimated GFR (MDRD) 57 (>60) mL/min BUN/Creatinine Ratio 5.0 L (14-18) Glucose 102 (74-106) mg/dL Calcium 8.6 (8.5-10.1) mg/dL Total Bilirubin 0.2 (0.2-1.0) mg/dL AST 19 (15-37) U/L ALT 25 (14-59) U/L Alkaline Phosphatase 86 (46-116) U/L Troponin I < 0.017 (0.00-0.056) ng/mL C-Reactive Protein <0.2 (<1.0) mg/dL Total Protein 7.2 (6.4-8.2) g/dl Albumin 3.9 (3.4-5.0) g/dl Globulin 3.3 gm/dL Albumin/Globulin Ratio 1.2 (1-2) Lipase 75 (73-393) U/L Meds: Medications Generic Name Dose Route Start Last Admin Trade Name Freq PRN Reason Stop Dose Admin Lactated Ringer's 1,000 mls @ 500 mls/hr 10/06/20 20:45 10/06/20 20:47 Ringers, Lactated IV 500 mls/hr ASDIRECTED STEF Administration Discontinued Medications Generic Name Dose Route Start Last Admin Trade Name Freq PRN Reason Stop Dose Admin Hydromorphone HCl 0.25 mg 10/06/20 20:38 10/06/20 20:48 Hydromorphone 0.5 Mg/0.5 Ml Syringe IVPUSH 10/06/20 20:39 0.25 mg ONETIME ONE Administration Metoclopramide HCl 5 mg 10/06/20 20:37 10/06/20 20:48 Metoclopramide 10 Mg/2 Ml Sdv IVPUSH 10/06/20 20:38 5 mg ONETIME ONE Administration - Radiology Interpretation Free Text/Narrative:: Ultrasound of the right upper quadrant shows cholelithiasis with a positive Pearl sign but no other evidence of acute cholecystitis. - Re-Assessments/Exams Free Text/Narrative Re-Assessment/Exam: 10/06/20 22:21 I spoke to the patient regarding the ultrasound results. I will place her on some Phenergan and Percocet over the weekend and she needs to follow-up with Dr. Aviles by calling his office Friday morning for an appointment regarding her gallbladder. In the meantime she needs to avoid all oil, greasy and fried foods. She understands this. 10/06/20 22:22 Does state that her pain is now low enough that it is comfortable and she does not need any more pain medication. Departure - Departure Time of Disposition: 22:22 Disposition: Home, Self-Care 01 Condition: Good Clinical Impression: Cholelithiasis without cholecystitis - Discharge Information *PRESCRIPTION DRUG MONITORING PROGRAM REVIEWED*: No *COPY OF PRESCRIPTION DRUG MONITORING REPORT IN PATIENT TERRI: No Prescriptions: Acetaminophen/oxyCODONE [Percocet 325-5 MG] 1 each PO Q4H PRN #15 tab PRN Reason: Pain Promethazine [Phenergan] 25 mg PO Q6H PRN #15 tab PRN Reason: Nausea Instructions: Cholelithiasis, [id number] Referrals: Adria Aviles MD [Physician] - Forms: ED Department Discharge Additional Instructions: You must avoid oily, greasy and fried foods because it will make your gallbladder hurt, stay on a bland diet with lots of fluids, take the Phenergan for the nausea and the Percocet for the pain, if the pain just gets too much and the medicine is not helping return to the ER, call Dr. Aviles's office Friday morning for an appointment to be seen regarding your gallbladder, return to the ER if needed Sepsis Event Note (ED) - Evaluation Sepsis Screening Result: No Definite Risk - Focused Exam Vital Signs: Vital Signs Temp Pulse Resp BP Pulse Ox 10/06/20 20:20 97.1 F 75 16 149/89 H 100 - My Orders Last 24 Hours: My Active Orders 10/06/20 20:39 EKG 12 Lead [EKG Documentation Completion] [] STAT Abdomen Ltd [US] Stat 10/06/20 20:45 Lactated Ringers [Ringers, Lactated] 1,000 ml IV ASDIRECTED - Assessment/Plan Last 24 Hours: My Active Orders 10/06/20 20:39 EKG 12 Lead [EKG Documentation Completion] [] STAT Abdomen Ltd [US] Stat 10/06/20 20:45 Lactated Ringers [Ringers, Lactated] 1,000 ml IV ASDIRECTED
[2020-10-06] MEDS ORDERED: Lactated Ringers 1,000 ML IV SCH (20:45)
--- NOTE | 2020-10-07 07:06 | US ---
Limited abdominal ultrasound: Multiple real-time images of the upper right abdomen were obtained. Comparison: Prior CT abdomen and pelvis study of 08/04/19. Findings: Hyperechoic area is noted within the right lobe of the liver which measures approximately 2.9 cm in size. This is most likely due to a hemangioma which is noted on prior CT study. Liver is otherwise within normal limits. Gallbladder contains multiple shadowing gallstones. No gallbladder wall thickening or biliary duct dilatation is seen. Right kidney shows no hydronephrosis or mass. Right kidney has a length of 11.7 cm. Pancreas is incompletely seen. Visualized portions of the pancreas appear within normal limits. Main portal vein shows normal hepatopedal flow. Impression: 1. Multiple gallstones. No gallbladder wall thickening or biliary duct dilatation is seen. 2. Hemangioma within the liver measuring 2.9 cm. 3. No additional abnormality is identified on right upper quadrant abdominal ultrasound. Diagnostic code #3 I agree with preliminary report from [facility] finalized on 10/06/20, 11:06 PM CDT, code #1
== END 2020-10-06 22:34 | disposition home or self-care (01) ==
LOC: JD.ED 20:15
DX: K80.20 Calculus of gallbladder without cholecystitis without obstruction (principal); I10 Essential (primary) hypertension; E03.9 Hypothyroidism, unspecified; Z79.899 Other long term (current) drug therapy; Z88.1 Allergy status to other antibiotic agents; Z88.8 Allergy status to other drugs, medicaments and biological substances; Z87.891 Personal history of nicotine dependence
CPT/HCPCS: 36415; 76705; 80053; 83690; 84484; 85025; 86140; 93005; 96374; 96375; 99284; J1170; J2765; J7120; 93010

== ENCOUNTER 2020-10-19 08:56 | Day surgery (SDC) | payer BC, MEDICAID ==
--- NOTE | 2020-10-19 09:16 | PCM.PREANE ---
Preanesthetic Assessment - Anesthesia/Transfusion/Family Hx Anesthesia History: Prior Anesthesia Without Reaction Family History of Anesthesia Reaction: No Transfusion History: No Prior Transfusion(s) - Review of Systems General: No Symptoms Pulmonary: No Symptoms Cardiovascular: Other (HTN) Gastrointestinal: Other (IBS, GERD uncontrolled) Neurological: No Symptoms Other: Reports: Thyroid Problems, Anxiety - Physical Assessment NPO Status Date: 10/18/20 NPO Status Time: 19:00 ASA Class: 2 Mental Status: Alert & Oriented x3 Dentition: Reports: Edentulous Thyro-Mental Finger Breadths: 3 Mouth Opening Finger Breadths: 3 ROM/Head Extension: Full Lungs: Clear to Auscultation, Normal Respiratory Effort Cardiovascular: Regular Rate, Regular Rhythm - Allergies Allergies/Adverse Reactions: Allergies Allergy/AdvReac Type Severity Reaction Status Date / Time erythromycin base AdvReac Tachycardia Verified 10/18/20 10:48 ondansetron [From Zofran] AdvReac Tremors Verified 10/18/20 10:48 - Blood Blood Available: No Product(s) Available: None - Anesthesia Plan Pre-Op Medication Ordered: None - Acknowledgements Anesthesia Type Planned: General Anesthesia Pt an Appropriate Candidate for the Planned Anesthesia: Yes Alternatives and Risks of Anesthesia Discussed w Pt/Guardian: Yes Pt/Guardian Understands and Agrees with Anesthesia Plan: Yes PreAnesthesia Questionnaire HEENT History: Reports: Allergic Rhinitis, Other (See Below) Other HEENT History: Impaired vision with reading glasses, full upper and lower dentures Cardiovascular History: Reports: Hypertension Other Cardiovascular History: edema Respiratory History: Reports: None Gastrointestinal History: Reports: Diverticulosis, Irritable Bowel Syndrome Genitourinary History: Reports: None 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: Musculoskeletal History: Reports: Osteoarthritis, Other (See Below) Other Musculoskeletal History: right knee pain Neurological History: Reports: None Psychiatric History: Reports: Anxiety Endocrine/Metabolic History: Reports: Hypothyroidism Hematologic History: Reports: None Immunologic History: Reports: None Oncologic (Cancer) History: Reports: None Dermatologic History: Reports: Other (See Below) Other Dermatologic History: Cyst excision, cold sores - Infectious Disease History Infectious Disease History: Reports: None - Past Surgical History Head Surgeries/Procedures: Reports: None HEENT Surgical History: Reports: None Cardiovascular Surgical History: Reports: None Respiratory Surgical History: Reports: None GI Surgical History: Reports: Colonoscopy Female Surgical History: Reports: Section, Tubal Ligation Endocrine Surgical History: Reports: Thyroidectomy Other Endocrine Surgeries/Procedures: Thyroidectomy Neurological Surgical History: Reports: None Musculoskeletal Surgical History: Reports: None Oncologic Surgical History: Reports: None Dermatological Surgical History: Reports: None - SUBSTANCE USE Tobacco Use Status *Q: Never Tobacco User Recreational Drug Use History: No - HOME MEDS Home Medications: Home Meds Dicyclomine [Bentyl] 20 mg PO BID PRN 08/04/19 [History] hydroCHLOROthiazide [Hydrochlorothiazide] 25 mg PO DAILY 08/04/19 [History] ALPRAZolam [Xanax] 0.25 mg PO BEDTIME PRN 08/05/19 [History] valACYclovir HCl [Valtrex] 500 mg PO DAILY PRN 08/25/19 [History] Cetirizine HCl [Zyrtec] 10 mg PO DAILY 10/18/20 [History] L. Acidophilus/L. Rhamnosus [Florajen Women 15 B Cell Cap] 1 cap PO DAILY 10/18/20 [History] Levothyroxine 175 mcg PO DAILY 10/18/20 [History] - CURRENT (IN HOUSE) MEDS Current Meds: Current Medications Lactated Ringer's (Ringers, Lactated) 1,000 mls @ 125 mls/hr IV ASDIRECTED STEF Stop: 10/19/20 23:00 Lidocaine/Sodium Bicarbonate (Lidocaine 1%/Sod Bicarbonate In Ns 8.4% 1 Ml Syringe) 0.25 ml IDERM ONETIME PRN PRN Reason: Prior to IV Start Stop: 10/19/20 18:00 Sodium Chloride (Sodium Chloride 0.9% 10 Ml Syringe) 10 ml FLUSH ASDIRECTED PRN PRN Reason: Keep Vein Open Stop: 10/19/20 18:00
[2020-10-19] MEDS ORDERED: fentaNYL 250 MCG/5 ML SDV ONE (10:04)
[2020-10-19] MEDS ORDERED: Propofol 200 MG/20 ML SDV ONE (10:04)
[2020-10-19] MEDS ORDERED: Midazolam 1 MG/ML 2 ML SDV ONE (10:04)
[2020-10-19] MEDS ORDERED: Lidocaine 1% 4 ML ONE (10:04)
[2020-10-19] MEDS ORDERED: Dexamethasone 4 MG/ML 5 ML MDV ONE ×2 (10:05→10:07)
[2020-10-19] MEDS ORDERED: Ketorolac 30 MG/ML SDV ONE (10:05)
[2020-10-19] MEDS ORDERED: ceFAZolin 1 GM Vial ONE (10:05)
[2020-10-19] MEDS ORDERED: Ondansetron 4 MG/2 ML SDV ONE (10:05)
[2020-10-19] MEDS ORDERED: Bupivacaine 0.5%/EPINEPHrine 1:200,000 50 ML MDV ONE (10:32)
[2020-10-19] MEDS ORDERED: Rocuronium 50 MG/5 ML Vial ONE (11:25)
[2020-10-19] MEDS ORDERED: Lactated Ringers 1,000 ML ONE (11:25)
[2020-10-19] MEDS ORDERED: Ketamine 500 mg/10 ML MDV ONE (11:26)
[2020-10-19] MEDS ORDERED: Glycopyrrolate 0.2 MG/ML SDV ONE (11:28)
[2020-10-19] MEDS ORDERED: Ketorolac 15 MG/ML SDV ONE (11:36)
[2020-10-19] MEDS ORDERED: diphenhydrAMINE 50 MG/ML SDV ONE (11:36)
[2020-10-19] MEDS ORDERED: HYDROmorphone 0.5 MG/0.5 ML Syringe ONE (11:38)
--- NOTE | 2020-10-19 12:00 | PCM.PRNOTE ---
- Free Text/Narrative Note: Date: 10/19/2020 Operation: laparoscopic cholecystectomy Indication: symptomatic cholelithiasis Surgeon: Adria Aviles MD Findings: Gallstone evident at gallbladder neck. Critical view of safety established. Detailed Report: The patient was taken to the operating room and placed in supine position on the table. Timeout was performed and general endotracheal anesthesia was initiated. The abdomen was prepped and draped in usual sterile fashion. A Veress needle was placed in the left upper quadrant to establish pneumoperitoneum. Air was aspirated just superior to the umbilicus with a needle and syringe. Once pressure reached 15 cm of water, a 5 mm bladed trocar was inserted just superior to the umbilicus. 5 mm 30 degree laparoscope was inserted into the abdomen and contents were inspected. There was no injury from Veress needle placement, and the needle was withdrawn. Additional 5 mm ports were placed under laparoscopic visualization at the lateral right upper quadrant and more medial right upper quadrant. The fundus of the gallbladder was grasped and retracted cephalad. A 12 mm bladed trocar was placed in the subxiphoid region. The infundibulum was retracted laterally. Visceral peritoneum of the gallbladder was divided using hook monopolar energy. A gallstone was apparent at the neck of the gallbladder. Careful dissection ensued, and the cystic structures were identified. Skeletonization was performed and a critical view of safety was obtained. Hemolock clips were placed on the cystic duct and cystic artery prior to transection. The gallbladder was removed from the liver using hook monopolar energy. The gallbladder was completely intact, and was placed in an Endo Catch bag and removed from the abdomen through the subxiphoid port. The dissection field appeared clean and dry. The larger subxiphoid incision was closed at the level of fascia with 0 Vicryl using a laparoscopic suture passer. Pneumoperitoneum was released as smaller ports were removed under laparoscopic visualization. Hemostasis was satisfactory. All skin incisions were closed with subcuticular 4-0 Vicryl suture and dressed with Dermabond. A total of 30 cc 0.5% Marcaine with epinephrine was used for local anesthetic throughout the case. The patient tolerated the procedure well.
[2020-10-19] MEDS ORDERED: Ondansetron 4 MG/2 ML SDV IVPUSH PRN (12:19)
[2020-10-19] MEDS ORDERED: fentaNYL 100 MCG/2 ML SDV IVPUSH PRN (12:19)
[2020-10-19] MEDS ORDERED: HYDROmorphone 0.5 MG/0.5 ML Syringe IVPUSH PRN (12:19)
--- NOTE | 2020-10-19 12:19 | PCM.POSTAN ---
POST ANESTHESIA ASSESSMENT - MENTAL STATUS Mental Status: Alert - VITAL SIGNS Vital Signs: 1209 130/73 100 2L NC 67 12 97.5 Last Vital Signs Temp 36.2 C 10/19/20 08:50 Pulse 76 10/19/20 08:50 Resp 17 10/19/20 08:50 BP 146/87 H 10/19/20 08:50 Pulse Ox 99 10/19/20 08:50 - RESPIRATORY Respiratory Status: Respiratory Rate WNL, Airway Patent, O2 Saturation Stable, Supplemental Oxygen - CARDIOVASCULAR CV Status: Pulse Rate WNL, Blood Pressure Stable - GASTROINTESTINAL GI Status: No Symptoms - PAIN Pain Score: 0 - POST OP HYDRATION Hydration Status: Adequate & Stable
[2020-10-19] MEDS ORDERED: Scopolamine 1.5 MG Transdermal Patch TRDERM ONE (12:21)
[2020-10-19] MEDS ORDERED: oxyCODONE 5 MG Tab PO PRN (12:58)
== END 2020-10-19 15:12 | disposition home or self-care (01) ==
LOC: JD.SDS 08:56
PROVIDERS: ATTEND Surgery
DX: K80.10 Calculus of gallbladder with chronic cholecystitis without obstruction (principal); D13.5 Benign neoplasm of extrahepatic bile ducts; I10 Essential (primary) hypertension; E03.9 Hypothyroidism, unspecified; Z88.8 Allergy status to other drugs, medicaments and biological substances; Z79.899 Other long term (current) drug therapy; Z98.890 Other specified postprocedural states; Z79.890 Hormone replacement therapy
CPT/HCPCS: 47562; A9270; J0690; J1100; J1170; J1200; J1885; J2250; J2704; J2710; J3010; J3490; J7120; 00790; J2405

== ENCOUNTER 2021-08-20 07:04 | Day surgery (SDC) | payer BC, MEDICAID ==
[~2021-08-20 07:04] MED LIST changes: +Acetaminophen 325 MG Tab PO SCH; +EPINEPHrine 1 MG/ML SDV ONE; +Midazolam 1 MG/ML 2 ML SDV ONE; +Morphine 8 MG, EPINEPHrine 0.3 MG, Cefuroxime 750 MG, Ketorolac 30 MG, Sodium Chloride ... PRN; +Pregabalin 25 MG Cap PO SCH; +Propofol 200 MG/20 ML SDV ONE; +Ropivacaine 0.5% 5 MG/ML 30 ML SDV ONE; +Sodium Chloride 0.9% 10 ML Syringe FLUSH SCH; +Vancomycin 1 GM SDV ONE; +ceFAZolin 1 GM Vial ONE; +fentaNYL 100 MCG/2 ML SDV ONE; +oxyCODONE ER 10 MG TAB.ER PO SCH
[2021-08-20] MEDS ORDERED: ePHEDrine 50 MG/ML SDV ONE (07:24)
[2021-08-20] MEDS ORDERED: HYDROmorphone 0.5 MG/0.5 ML Syringe IVPUSH PRN (07:42)
[2021-08-20] MEDS ORDERED: fentaNYL 100 MCG/2 ML SDV IVPUSH PRN (07:42)
[2021-08-20] MEDS ORDERED: oxyCODONE 5 MG Tab PO ONE (12:30)
[2021-08-20] MEDS ORDERED: Promethazine 12.5 MG in Sodium Chloride 0.9% 50 ML IV ONE (14:45)
== END 2021-08-20 16:24 | disposition home or self-care (01) ==
LOC: JD.SDS 07:04
PROVIDERS: ATTEND Orthopaedic Surgery
DX: M17.11 Unilateral primary osteoarthritis, right knee (principal); I10 Essential (primary) hypertension; G47.00 Insomnia, unspecified; F41.9 Anxiety disorder, unspecified; F32.A Depression, unspecified; K21.9 Gastro-esophageal reflux disease without esophagitis; E03.9 Hypothyroidism, unspecified; G89.29 Other chronic pain; Z98.890 Other specified postprocedural states; Z79.899 Other long term (current) drug therapy; Z88.8 Allergy status to other drugs, medicaments and biological substances
CPT/HCPCS: 01402; 64447; 73560-26-RT; 73560-RT; 76942; 97110-GP; 97116-GP; 97161-GP; A9270-GY; C1713; C1776; J0171; J0690; J0697; J1885; J2250; J2270; J2550; J2704; J2795; J3010; J3370; J7120

== ENCOUNTER 2021-10-27 23:45 | Emergency (ER) | payer MEDICAID ==
[2021-10-28] MEDS ORDERED: Sodium Chloride 0.9% 10 ML Syringe FLUSH PRN (00:04)
[2021-10-28] MEDS ORDERED: Metoclopramide 10 MG/2 ML SDV IVPUSH ONE (00:04)
[2021-10-28] MEDS ORDERED: Sodium Chloride 0.9% 1,000 ML IV STA (00:04)
[2021-10-28] MEDS ORDERED: HYDROmorphone 0.5 MG/0.5 ML Syringe IVPUSH ONE (00:08)
== END 2021-10-28 04:05 | disposition home or self-care (01) ==
LOC: JD.ED 23:45
DX: K52.9 Noninfective gastroenteritis and colitis, unspecified (principal); R10.32 Left lower quadrant pain; R11.2 Nausea with vomiting, unspecified; I10 Essential (primary) hypertension; M19.90 Unspecified osteoarthritis, unspecified site; E03.9 Hypothyroidism, unspecified; Z86.16 Personal history of COVID-19; Z90.49 Acquired absence of other specified parts of digestive tract; Z79.899 Other long term (current) drug therapy; Z79.82 Long term (current) use of aspirin; Z88.1 Allergy status to other antibiotic agents; Z88.8 Allergy status to other drugs, medicaments and biological substances
CPT/HCPCS: 36415; 74177; 80053; 81001; 83690; 85025; 86140; 96374; 96375; 99284; J1170; J2765; J3490; J7030

== ENCOUNTER 2023-02-07 20:03 | Emergency (ER) | payer BC, MEDICAID ==
[2023-02-07] MEDS ORDERED: Sodium Chloride 0.9% 10 ML Syringe FLUSH PRN (20:20)
[2023-02-07] MEDS ORDERED: Aspirin 81 MG Tab.Chew PO ONE (20:20)
[2023-02-07 20:37] LABS: BASOPHILS ABSOLUTE AUTO 0.03 K/mm3 (0.01-0.08); BASOPHILS PERCENT AUTO 0.5 % (0.1-1.2); EOSINOPHILS ABSOLUTE AUTO 0.05 K/mm3 (0.04-0.36); EOSINOPHILS PERCENT AUTO 0.8 (0.7-5.8); HEMATOCRIT 41.5 % (34.1-44.9); IMMATURE GRAN ABSOLUTE AUTO 0.01 K/mm3 (0.00-0.10); IMMATURE GRAN PERCENT AUTO 0.2 % (<=1.0); LYMPHOCYTES ABSOLUTE AUTO 2.34 K/mm3 (1.18-3.74); LYMPHOCYTES PERCENT AUTO 37.8 % (19.3-51.7); MEAN CORPUSCULAR HEMOGLOBIN 30.8 pg (25.6-32.2); MEAN CORPUSCULAR HGB CONC 33.7 g/dl (32.2-35.5); MEAN CORPUSCULAR VOLUME 91.2 fl (79.4-94.8); MEAN PLATELET VOLUME 9.5 fl (9.4-12.3); MONOCYTES ABSOLUTE AUTO 0.53 K/mm3 (0.24-0.36); MONOCYTES PERCENT AUTO 8.6 % (4.7-12.5); NEUTROPHILS ABSOLUTE AUTO 3.23 K/mm3 (1.56-6.13); NEUTROPHILS PERCENT AUTO 52.1 % (34.0-71.1); PLATELET COUNT,PLT 281 K/mm3 (182-369); RED BLOOD CELL COUNT 4.55 M/mm3 (3.98-5.22); WHITE BLOOD CELL COUNT,WBC 6.19 K/mm3 (3.98-10.04)
[2023-02-07 21:00] LABS: INR 0.96; PROTHROMBIN TIME 10.3 SECONDS (9.7-12.0)
[2023-02-07 21:01] LABS: D-DIMER QUANTITATIVE 0.36 mg/L (0.19-0.50)
[2023-02-07 21:07] LABS: A/G RATIO 1.2 (1-2); ALANINE AMINOTRANSFERASE,ALT 21 U/L (14-59); ALBUMIN 4.3 g/dl (3.4-5.0); ALKALINE PHOSPHATASE 99 U/L (46-116); ANION GAP 15.3 (5-15); ASPARTATE AMNIOTRANSFERASE,AST 14 U/L (15-37); BILIRUBIN TOTAL 0.3 mg/dL (0.2-1.0); BLOOD UREA NITROGEN,BUN 9 mg/dL (7-18); CALCIUM 9.8 mg/dL (8.5-10.1); CARBON DIOXIDE,CO2 26 mEq/L (21-32); CHLORIDE,CL 102 mEq/L (98-107); CREATININE 0.9 mg/dL (0.55-1.02); EST CRCL DRUG DOSING (CG) 54.99 mL/min; ESTIMATED GFR 73 mL/min (>60); GLUCOSE RANDOM 96 mg/dL (70-99); MAGNESIUM 1.9 mg/dL (1.8-2.4); POTASSIUM,K 3.3 mEq/L (3.5-5.1); PROTEIN TOTAL,TP 7.9 g/dl (6.4-8.2); SODIUM,NA 140 mEq/L (136-145)
[2023-02-07 21:09] LABS: TROPONIN I HIGH SENSITIVITY < 4 pg/mL (<=51)
== END 2023-02-08 00:39 | disposition home or self-care (01) ==
LOC: JD.ED 20:03
DX: R07.9 Chest pain, unspecified (principal); I10 Essential (primary) hypertension; E03.9 Hypothyroidism, unspecified; Z88.1 Allergy status to other antibiotic agents; Z88.8 Allergy status to other drugs, medicaments and biological substances; Z79.899 Other long term (current) drug therapy; Z79.82 Long term (current) use of aspirin; Z86.16 Personal history of COVID-19
CPT/HCPCS: 36415; 71045; 80053; 80307; 83735; 83880; 84484; 85025; 85379; 85610; 93005; 99285; A9270; J3490; 93010; 99283

== ENCOUNTER 2024-01-07 06:45 | Day surgery (SDC) | payer BC ==
[~2024-01-07 06:45] MED LIST changes: +Acetaminophen 325 MG Tab PO ONE; -Acetaminophen 325 MG Tab PO SCH; -EPINEPHrine 1 MG/ML SDV ONE; -Lactated Ringers 1,000 ML IV SCH; -Lidocaine 1%/Sod Bicarbonate in NS 8.4% 1 ML Syringe IDERM PRN; -Morphine 8 MG, EPINEPHrine 0.3 MG, Cefuroxime 750 MG, Ketorolac 30 MG, Sodium Chloride ... PRN; -Pregabalin 25 MG Cap PO SCH; -Ropivacaine 0.5% 5 MG/ML 30 ML SDV ONE; -Vancomycin 1 GM SDV ONE; -ceFAZolin 1 GM Vial ONE; -oxyCODONE ER 10 MG TAB.ER PO SCH
[2024-01-07] MEDS: Lactated Ringers 1,000 ML IV SCH (07:15)
[2024-01-07] MEDS ORDERED: Propofol 200 MG/20 ML SDV ONE ×2 (07:30→08:40)
[2024-01-07] MEDS ORDERED: Ropivacaine 0.5% 5 MG/ML 30 ML SDV ONE (07:30)
[2024-01-07] MEDS: Pregabalin 25 MG Cap PO ONE (07:51)
[2024-01-07] MEDS: Acetaminophen 325 MG Tab PO ONE (07:52)
[2024-01-07] MEDS: oxyCODONE ER 10 MG TAB.ER PO ONE (07:52)
[2024-01-07] MEDS ORDERED: ePHEDrine 50 MG/ML SDV ONE (08:15)
[2024-01-07] MEDS ORDERED: ceFAZolin 2 GM Vial ONE (08:21)
[2024-01-07] MEDS ORDERED: Lactated Ringers 1,000 ML IV ONE (09:00)
[2024-01-07] MEDS: Morphine 8 MG, EPINEPHrine 0.3 MG, Cefuroxime 750 MG, Ketorolac 30 MG, Sodium Chloride ... PRN (09:10)
[2024-01-07] MEDS: Vancomycin 1 GM SDV ONE (09:19)
[2024-01-07] MEDS: Tranexamic Acid 1,000 MG/10 ML Vial ONE (09:19)
[2024-01-07] MEDS ORDERED: Ketorolac 30 MG/ML SDV ONE (09:20)
[2024-01-07] MEDS: oxyCODONE 5 MG Tab PO PRN (11:39)
== END 2024-01-07 15:45 | disposition home or self-care (01) ==
LOC: JD.SDS 06:45
PROVIDERS: ATTEND Orthopaedic Surgery
DX: M17.12 Unilateral primary osteoarthritis, left knee (principal); I10 Essential (primary) hypertension; E03.9 Hypothyroidism, unspecified; E78.5 Hyperlipidemia, unspecified; I25.10 Atherosclerotic heart disease of native coronary artery without angina pectoris; K21.9 Gastro-esophageal reflux disease without esophagitis; R20.0 Anesthesia of skin; Z79.890 Hormone replacement therapy; Z79.899 Other long term (current) drug therapy; Z88.1 Allergy status to other antibiotic agents; Z88.8 Allergy status to other drugs, medicaments and biological substances
CPT/HCPCS: 0055T; 27447; 64447; 73560; 97110; 97161; A9270; C1713; C1776; J0171; J0690; J0697; J1885; J2250; J2270; J2704; J2795; J3010; J3370; J7120; 01402; J3490

== ENCOUNTER 2025-04-10 16:06 | Emergency (ER) | payer BC | END 2025-04-10 17:25 | disposition home or self-care (01) | LOC: JD.ED 16:06 | DX: S93.402A Sprain of unspecified ligament of left ankle, initial encounter (principal); I10 Essential (primary) hypertension; I25.10 Atherosclerotic heart disease of native coronary artery without angina pectoris; E03.9 Hypothyroidism, unspecified; K21.9 Gastro-esophageal reflux disease without esophagitis; M19.90 Unspecified osteoarthritis, unspecified site; Z88.8 Allergy status to other drugs, medicaments and biological substances; Z88.1 Allergy status to other antibiotic agents; Z90.49 Acquired absence of other specified parts of digestive tract; Z79.899 Other long term (current) drug therapy; Z79.890 Hormone replacement therapy; X50.1XXA Overexertion from prolonged static or awkward postures, initial encounter | CPT/HCPCS: 73610-26-LT; 73610-LT; 99283 ==